=== PATIENT | male | born 1950 | race Caucasian/White ===

== ENCOUNTER 2017-03-22 12:43 | Inpatient (IN) | payer OTHER ==
[2017-03-22 15:25] VITALS: BMI 31.3
[2017-03-22] MEDS ORDERED: LOPERAMIDE HCL 2 MG CAPSULE PO PRN (18:47)
[2017-03-22] MEDS ORDERED: IBUPROFEN 400 MG TABLET (FP) PO PRN (18:47)
[2017-03-22] MEDS ORDERED: diphenhydrAMINE HCL 50 MG CAPSULE PO PRN (18:47)
[2017-03-22] MEDS ORDERED: ACETAMINOPHEN 325 MG TABLET (FP) PO PRN (18:47)
[2017-03-22] MEDS ORDERED: chlordiazePOXIDE HCL 25 MG CAPSULE PO PRN (18:47)
[2017-03-22] MEDS ORDERED: guaiFENesin/D-METHORPHAN HB 10 ML UNIT-DOSE CUPS PO PRN (18:47)
[2017-03-22] MEDS ORDERED: MAGNESIUM CITRATE 300 ML BOTTLE PO PRN (18:47)
[2017-03-22] MEDS ORDERED: MENTHOL/PHENOL 1 EACH UD MM PRN (18:47)
[2017-03-22] MEDS ORDERED: P-EPHED 60MG/TRIPROLIDI 2.5MG TABLET PO PRN (18:47)
[2017-03-22] MEDS ORDERED: MAGNESIUM HYDROX 2400MG/30ML ORAL SUSPENSION 30 ML CUP PO PRN (18:47)
[2017-03-22] MEDS ORDERED: MAG HYDROX/AL HYDROX/SIMETH 30 ML UNIT-DOSE CUP PO PRN (18:47)
--- NOTE | 2017-03-22 18:47 | HP ---
CIWA Score - CIWA Score Nausea/Vomitin-Mild Nausea/No Vomiting Muscle Tremors: 4-Moderate,w/Arms Extend Anxiety: 4-Mod. Anxious/Guarded Agitation: 4-Moderately Restless Paroxysmal Sweats: 1-Minimal Palms Moist Orientation: 0-Oriented Tacttile Disturbances: 0-None Auditory Disturbances: 0-None Visual Disturbances: 0-None Headache: 0-None Present CIWA-Ar Total Score: 14 Admission ROS BHS - HPI Chief Complaint: withdrawal sx Allergies/Adverse Reactions: Allergies Allergy/AdvReac Type Severity Reaction Status Date / Time No Known Allergies Allergy Verified 03/28/16 15:38 History of Present Illness: 66 years old male with long history of alcohol nicotine dependence has hypertension, positive ppd, and depression is admitted to detox Exam Limitations: No Limitations - Ebola screening Have you traveled outside of the country in the last 21 days: No Have you had contact with anyone from an Ebola affected area: No Have you been sick,other than usual withdrawal symptoms: No Do you have a fever: No - Review of Systems Constitutional: Changes in sleep, Weight Stable EENT: reports: Blurred Vision (eye glasses), Dental Problems (upper and lower) Respiratory: reports: No Symptoms reported Cardiac: reports: No Symptoms Reported GI: reports: Nausea, Poor Fluid Intake, Abdominal cramping : reports: No Symptoms Reported Musculoskeletal: reports: No Symptoms Reported Integumentary: reports: No Symptoms Reported Neuro: reports: Tremors Endocrine: reports: No Symptoms Reported Hematology: reports: No Symptoms Reported Psychiatric: reports: No Sypmtoms Reported, Judgement Intact, Orientated x3, Depressed Other Systems: Reviewed and Negative Patient History - Patient Medical History Hx Anemia: No Hx Asthma: No Hx Chronic Obstructive Pulmonary Disease (COPD): No Hx Cancer: No Hx Cardiac Disorders: No Hx Congestive Heart Failure: No Hx Hypertension: Yes (BP: 137/73) Hx Hypercholesterolemia: No Hx Pacemaker: No HX Cerebrovascular Accident: No Hx Seizures: No Hx Dementia: No Hx Diabetes: No Hx Gastrointestinal Disorders: No Hx Liver Disease: No Hx Genitourinary Disorders: No Hx Sexually Transmitted Disorders: No Hx Renal Disease (ESRD): No Hx Thyroid Disease: No Hx Human Immunodeficiency Virus (HIV): No (2014 LAST NEGATIVE) Hx Hepatitis C: No Hx Depression: Yes Hx Suicide Attempt: No Hx Bipolar Disorder: No Hx Schizophrenia: No - Patient Surgical History Past Surgical History: No Hx Neurologic Surgery: No Hx Cataract Extraction: No Hx Cardiac Surgery: No Hx Lung Surgery: No Hx Breast Surgery: No Hx Breast Biopsy: No Hx Abdominal Surgery: No Hx Appendectomy: No Hx Cholecystectomy: No Hx Genitourinary Surgery: No Hx Orthopedic Surgery: No - PPD History Previous Implant?: Yes Documented Results: Positive w/o proof Implanted On Prior [facility] Admission?: No Results: c-x-ray (neg.) PPD to be Administered?: No - Smoking Cessation Smoking history: Current every day smoker Have you smoked in the past 12 months: Yes Aproximately how many cigarettes per day: 10 Cigars Per Day: 0 Hx Chewing Tobacco Use: No Initiated information on smoking cessation: Yes 'Breaking Loose' booklet given: 03/22/17 - Substance & Tx. History Hx Alcohol Use: Yes Hx Substance Use: Yes Substance Use Type: Alcohol, Cocaine Hx Substance Use Treatment: Yes (03/2016 [facility] - Substances Abused Alcohol Route: Oral Frequency: Daily Amount used: Beer 1x 6 pack, Vodka 1 pint Age of first use: 17 Date of Last Use: 03/22/17 Cocaine Route: Smoking Frequency: Daily Amount used: $30 Age of first use: 18 Date of Last Use: 03/21/17 Family Disease History - Family Disease History Family Disease History: Diabetes: Mother ( CANCER OF BREAST), CA: Father (alcohol dependence;LUNG CA ), Mother, Other: Father Admission Physical Exam BHS - Vital Signs Vital Signs: Vital Signs - 24 hr 03/22/17 15:21 Temperature 97 F L Pulse Rate 102 H Respiratory 20 Rate Blood Pressure 137/73 - Physical General Appearance: Yes: Appropriately Dressed, Mild Distress, Obese, Tremorous , Irritable, Sweating, Anxious HEENTM: Yes: Hearing grossly Normal, Normal ENT Inspection, Normocephalic, Normal Voice Respiratory: Yes: Chest Non-Tender, Lungs Clear, Normal Breath Sounds, No Respiratory Distress, No Accessory Muscle Use Neck: Yes: Supple, Trachea in good position Breast: Yes: Breasts Symetrical Cardiology: Yes: Regular Rhythm, S1, S2, Tachycardia Abdominal: Yes: Normal Bowel Sounds, Non Tender, Soft Genitourinary: Yes: Within Normal Limits Back: Yes: Normal Inspection Musculoskeletal: Yes: full range of Motion, Gait Steady, Muscle Pain (legs cramping) Extremities: Yes: Normal Range of Motion, Non-Tender, Tremors Neurological: Yes: Fully Oriented, Alert, Motor Strength 5/5, Normal Response, Depressed Affect Integumentary: Yes: Warm Lymphatic: Yes: Within Normal Limits - Diagnostic (1) Alcohol dependence with uncomplicated withdrawal Current Visit: Yes Status: Acute (2) HTN (hypertension) Current Visit: Yes Status: Chronic Qualifiers: Hypertension type: essential hypertension Qualified Code(s): I10 - Essential (primary) hypertension; I10 - Essential (primary) hypertension; I10 - Essential (primary) hypertension Comment: PATIENT REPORTS TAKING HCTZ 12.5 MG DAILY, DENIES TAKING LISINOPRIL (3) MDD (major depressive disorder) Current Visit: Yes Status: Suspected Qualifiers: Major depression recurrence: recurrent Active/Remission status: in partial remission Qualified Code(s): F33.41 - Major depressive disorder, recurrent, in partial remission; F33.41 - Major depressive disorder, recurrent, in partial remission; F33.41 - Major depressive disorder, recurrent, in partial remission; F33.41 - Major depressive disorder, recurrent, in partial remission (4) Methadone maintenance therapy patient Current Visit: Yes Status: Chronic Comment: 40 MG VERIfication pending (5) Nicotine dependence Current Visit: Yes Status: Acute Qualifiers: Nicotine product type: cigarettes Substance use status: in withdrawal Qualified Code(s): F17.213 - Nicotine dependence, cigarettes, with withdrawal; F17.213 - Nicotine dependence, cigarettes, with withdrawal (6) Positive PPD, treated Current Visit: Yes Status: Resolved Cleared for Admission S - Detox or Rehab [facility] Level of Care: Medically Managed Detox Regimen/Protocol: Librium [facility] Breath Alcohol Content Breath Alcohol Content: 0 Urine Drug Screen - Results Drug Screen Negative: No Urine Drug Screen Results: KEVIN-Cocaine, OPI-Opiates, BZO-Benzodiazepines, MTD- Methadone, TCA-Tricyclic Antidepress
[2017-03-22] MEDS ORDERED: BACLOFEN 10 MG TABLET (FP) PO PRN (18:53)
[2017-03-22 20:41] LABS: URINE APPEARANCE SLCLOUDY; URINE BILIRUBIN NEGATIVE (NEGATIVE); URINE BLOOD NEGATIVE (NEGATIVE); URINE COLOR YELLOW; URINE GLUCOSE (UA) NEGATIVE (NEGATIVE); URINE KETONE NEGATIVE (NEGATIVE); URINE NITRITE NEGATIVE (NEGATIVE); URINE PROTEIN NEGATIVE (NEGATIVE); URINE UROBILINOGEN NEGATIVE mg/dL (0.2-1.0)
[2017-03-22 22:42] LABS: URINE LEUK ESTERASE Negative (NEGATIVE)
[2017-03-22] MEDS: chlordiazePOXIDE HCL 25 MG CAPSULE PO SCH (22:55)
[2017-03-22] MEDS: THIAMINE HCL 100 MG TABLET (FP) PO SCH (22:55)
[2017-03-23] MEDS: chlordiazePOXIDE HCL 25 MG CAPSULE PO SCH ×4 (05:52→22:09)
--- NOTE | 2017-03-23 08:32 | CONSULT ---
[facility] Psychiatric Consult - Data Date of interview: 03/23/17 Admission source: [facility] Identifying data: This is 66 years old female with history of psychiatric hospitalization, history of MDD, intoxicated with: Alcohol, Opioids, Cocaine and Nicotine Substance Abuse History: Smoking history: Current every day smoker. Have you smoked in the past 12 months: Yes. Aproximately how many cigarettes per day: 10. Cigars Per Day: 0. Hx Chewing Tobacco Use: No. Initiated information on smoking cessation: Yes. 'Breaking Loose' booklet given: 03/22/17. - Substance & Tx. History. Hx Alcohol Use: Yes. Hx Substance Use: Yes. Substance Use Type : Alcohol, Cocaine. Hx Substance Use Treatment: Yes (03/2016 [facility]). - Substances Abused. Alcohol. Route: Oral. Frequency: Daily. Amount used: Beer 1x 6 pack, Vodka 1 pint. Age of first use: 17. Date of Last Use: . Cocaine. Route: Smoking. Frequency: Daily. Amount used: $30. Age of first use: 18. Date of Last Use: 03/21/17 Medical History: HTN. PPD+ history, MMTP history, DM-II Psychiatric History: Patienmt reports to carry MDD, , reports taking prior to admission: Prozac 20mg poqd. Elavil 100mg po qhs. There is unclear psychiatric admission on about 10 years ago for safety, denies suicidal history Physical/Sexual Abuse/Trauma History: Denies Additional Comment: Prozac 20mg poqd. Elavil 100mg po qhs Mental Status Exam - Mental Status Exam Alert and Oriented to: Person Cognitive Function: Fair Patient Appearance: Unkempt Mood: Apprehensive Affect: Mood Congruent Patient Behavior: Cooperative Speech Pattern: Appropriate Voice Loudness: Normal Thought Process: Goal Oriented Thought Disorder: Being Controlled Hallucinations: Denies Suicidal Ideation: Denies Homicidal Ideation: Denies Insight/Judgement: Fair Sleep: Difficulty falling asleep Appetite: Fair Muscle strength/Tone: Normal Gait/Station: Shuffling Additional Comments: Prozac 20mg poqd. Elavil 100mg po qhs Psychiatric Findings - Problem List ([place] 1, 2,3) (1) Alcohol dependence with uncomplicated withdrawal Current Visit: Yes Status: Acute (2) Nicotine dependence Current Visit: Yes Status: Acute Qualifiers: Nicotine product type: cigarettes Substance use status: in withdrawal Qualified Code(s): F17.213 - Nicotine dependence, cigarettes, with withdrawal; F17.213 - Nicotine dependence, cigarettes, with withdrawal (3) Methadone maintenance therapy patient Current Visit: Yes Status: Chronic Comment: 40 MG VERIfication pending (4) MDD (major depressive disorder) Current Visit: Yes Status: Suspected Qualifiers: Major depression recurrence: recurrent Active/Remission status: in partial remission Qualified Code(s): F33.41 - Major depressive disorder, recurrent, in partial remission; F33.41 - Major depressive disorder, recurrent, in partial remission; F33.41 - Major depressive disorder, recurrent, in partial remission; F33.41 - Major depressive disorder, recurrent, in partial remission (5) Drug-induced mood disorder Current Visit: No Status: Acute (6) Opioid dependence on agonist therapy Current Visit: No Status: Acute (7) Substance induced mood disorder Current Visit: No Status: Acute (8) Substance-induced sleep disorder Current Visit: No Status: Acute (9) Cocaine dependence Current Visit: No Status: Chronic Qualifiers: Substance use status: uncomplicated Qualified Code(s): F14.20 - Cocaine dependence, uncomplicated; F14.20 - Cocaine dependence, uncomplicated; F14.20 - Cocaine dependence, uncomplicated - Initial Treatment Plan Initial Treatment Plan: Prozac 20mg poqd. Elavil 100mg po qhs
[2017-03-23] MEDS: HYDROCHLOROTHIAZIDE 12.5 MG CAPSULE (FP) PO SCH (10:11)
[2017-03-23] MEDS: METHADONE HCL 40 MG DISPERSABLE TABLET PO SCH (10:11)
[2017-03-23] MEDS: PRENATAL VITAMINS W/ FOLIC ACID TABLET (FP) PO SCH (10:11)
[2017-03-23] MEDS: FLUoxetine HCL 20 MG CAPSULE (FP) PO SCH (10:13)
[2017-03-23 10:46] LABS: MCH 27.9 pg (25.7-33.7); MCHC 32.9 g/dl (32.0-35.9); MEAN CELL VOLUME 84.6 fl (80-96); MEAN PLT VOLUME 8.9 fl (7.5-11.1); PLATELET COUNT 259 K/MM3 (134-434); RDW 14.7 % (11.9-15.9); WHITE BLOOD COUNT 7.4 K/mm3 (4.0-10.0)
[2017-03-23 10:51] LABS: ALBUMIN 3.2 g/dl (3.4-5.0); ANION GAP 6 (8-16); BILIRUBIN,TOTAL 0.2 mg/dL (0.2-1.0); CALCIUM 8.7 mg/dL (8.5-10.1); CO2 33 mmol/L (21-32); CREATININE 0.8 mg/dL (0.7-1.3); GLUCOSE,RANDOM 96 mg/dL (74-106); SGOT/AST 18 U/L (15-37); SGPT/ALT 29 U/L (12-78); TOT PROT 6.4 g/dl (6.4-8.2)
[2017-03-23 10:52] LABS: ALK PHOS 82 U/L (45-117)
--- NOTE | 2017-03-23 11:01 | PN ---
S CIWA - CIWA Score Nausea/Vomitin Muscle Tremors: 5 Anxiety: 5 Agitation: 5 Paroxysmal Sweats: 3 Orientation: 0-Oriented Tacttile Disturbances: 1-Very Mild Itch/Numbness Auditory Disturbances: 0-None Visual Disturbances: 0-None Headache: 1-Very Mild CIWA-Ar Total Score: 23 S Progress Note (SOAP) Subjective: Sweating, tremor, chills, nausea, interrupted sleep Objective: 03/23/17 10:59 Last Vital Signs Temp Pulse Resp BP Pulse Ox 96.4 F L 83 18 118/64 03/23/17 09:29 03/23/17 09:29 03/23/17 09:29 03/23/17 09:29 Laboratory Tests 03/22/17 03/23/17 03/23/17 20:00 07:20 07:20 WBC 7.4 RBC 4.20 Hgb 11.7 Hct 35.6 MCV 84.6 MCH 27.9 MCHC 32.9 RDW 14.7 Plt Count 259 MPV 8.9 D Sodium 140 Potassium 3.5 Chloride 101 Carbon Dioxide 33 H Anion Gap 6 L BUN 13 Creatinine 0.8 Creat Clearance w eGFR > 60 Random Glucose 96 Calcium 8.7 Total Bilirubin 0.2 D AST 18 D ALT 29 D Alkaline Phosphatase 82 Total Protein 6.4 Albumin 3.2 L D Urine Color Yellow Urine Appearance Slcloudy Urine pH 5.0 Ur Specific [place] 1.025 Urine Protein Negative Urine Glucose (UA) Negative Urine Ketones Negative Urine Blood Negative Urine Nitrite Negative Urine Bilirubin Negative Urine Urobilinogen Negative Ur Leukocyte Esterase Negative Labs noted Assessment: 03/23/17 11:00 Withdrawal symptoms Plan: Continue detox Patient is on methadone 40mg PO daily, MMTP (verified by nurse), first dose today
--- NOTE | 2017-03-23 13:08 | EKG ---
Test Reason : Blood Pressure : / mmHG Vent. Rate : 091 BPM Atrial Rate : 091 BPM P-R Int : 156 ms QRS Dur : 096 ms QT Int : 400 ms P-R-T Axes : 061 -25 030 degrees QTc Int : 492 ms NORMAL SINUS RHYTHM POSSIBLE LEFT ATRIAL ENLARGEMENT LEFT VENTRICULAR HYPERTROPHY CANNOT RULE OUT SEPTAL INFARCT , AGE UNDETERMINED ABNORMAL ECG NO PREVIOUS ECGS AVAILABLE Confirmed by DI BROOKE MD ([id number]) on 03/23/2017 1:07:57 PM Referred By: Confirmed By:DI BROOKE MD
[2017-03-23] MEDS: THIAMINE HCL 100 MG TABLET (FP) PO SCH (22:09)
[2017-03-23] MEDS: AMITRIPTYLINE HCL 100 MG TABLET PO SCH (22:09)
[2017-03-24] MEDS: METHADONE HCL 40 MG DISPERSABLE TABLET PO SCH (05:56)
[2017-03-24] MEDS: chlordiazePOXIDE HCL 25 MG CAPSULE PO SCH ×3 (05:57→17:22)
[2017-03-24] MEDS: FLUoxetine HCL 20 MG CAPSULE (FP) PO SCH (10:48)
[2017-03-24] MEDS: PRENATAL VITAMINS W/ FOLIC ACID TABLET (FP) PO SCH (10:48)
[2017-03-24] MEDS: HYDROCHLOROTHIAZIDE 12.5 MG CAPSULE (FP) PO SCH (10:48)
--- NOTE | 2017-03-24 11:58 | PN ---
S CIWA - CIWA Score Nausea/Vomitin-No Nausea/No Vomiting Muscle Tremors: 4-Moderate,w/Arms Extend Anxiety: 3 Agitation: 3 Paroxysmal Sweats: 3 Orientation: 0-Oriented Tacttile Disturbances: 0-None Auditory Disturbances: 0-None Visual Disturbances: 0-None Headache: 0-None Present CIWA-Ar Total Score: 13 BHS Progress Note (SOAP) Subjective: Sweating,anxiety,tremors,restless,interrupted sleep. Objective: 03/24/17 11:55 Vital Signs - 8 hr 03/24/17 03/24/17 06:24 11:06 Temperature 96.4 F L Pulse Rate 72 75 Respiratory 18 18 Rate Blood Pressure 139/79 106/58 Laboratory Tests 03/22/17 03/23/17 03/23/17 20:00 07:20 07:20 WBC 7.4 RBC 4.20 Hgb 11.7 Hct 35.6 MCV 84.6 MCH 27.9 MCHC 32.9 RDW 14.7 Plt Count 259 MPV 8.9 D Sodium 140 Potassium 3.5 Chloride 101 Carbon Dioxide 33 H Anion Gap 6 L BUN 13 Creatinine 0.8 Creat Clearance w eGFR > 60 Random Glucose 96 Calcium 8.7 Total Bilirubin 0.2 D AST 18 D ALT 29 D Alkaline Phosphatase 82 Total Protein 6.4 Albumin 3.2 L D Urine Color Yellow Urine Appearance Slcloudy Urine pH 5.0 Ur Specific [place] 1.025 Urine Protein Negative Urine Glucose (UA) Negative Urine Ketones Negative Urine Blood Negative Urine Nitrite Negative Urine Bilirubin Negative Urine Urobilinogen Negative Ur Leukocyte Esterase Negative RPR Titer 03/23/17 07:20 WBC RBC Hgb Hct MCV MCH MCHC RDW Plt Count MPV Sodium Potassium Chloride Carbon Dioxide Anion Gap BUN Creatinine Creat Clearance w eGFR Random Glucose Calcium Total Bilirubin AST ALT Alkaline Phosphatase Total Protein Albumin Urine Color Urine Appearance Urine pH Ur Specific [place] Urine Protein Urine Glucose (UA) Urine Ketones Urine Blood Urine Nitrite Urine Bilirubin Urine Urobilinogen Ur Leukocyte Esterase RPR Titer Nonreactive labs noted Assessment: 03/24/17 11:56 Withdrawal sx. Plan: Continue detox
[2017-03-24 22:08] VITALS: TEMP 97.1
[2017-03-24] MEDS: chlordiazePOXIDE 5 MG CAPSULE PO SCH (22:18)
[2017-03-24] MEDS: AMITRIPTYLINE HCL 100 MG TABLET PO SCH (22:18)
[2017-03-24] MEDS: THIAMINE HCL 100 MG TABLET (FP) PO SCH (22:18)
[2017-03-25] MEDS: chlordiazePOXIDE 5 MG CAPSULE PO SCH ×2 (06:47→10:35)
[2017-03-25] MEDS: METHADONE HCL 40 MG DISPERSABLE TABLET PO SCH (07:40)
[2017-03-25 09:20] VITALS: BP 134/86; PULSE 92
--- NOTE | 2017-03-25 09:54 | DS ---
[facility] Detox Discharge Summary Admission Date: 03/22/17 Discharge Date: 03/25/17 - History Present History: Alcohol Dependence, MMTP Pertinent Past History: HTN - Physical Exam Results Vital Signs: Vital Signs Temperature 97.1 F L 03/25/17 09:18 Pulse Rate 92 H 03/25/17 09:18 Respiratory Rate 18 03/25/17 09:18 Blood Pressure 134/86 03/25/17 09:18 O2 Sat by Pulse Oximetry (%) Pertinent Admission Physical Exam Findings: Withdrawal sx. Laboratory Last Values WBC 7.4 K/mm3 (4.0-10.0) 03/23/17 07:20 RBC 4.20 M/mm3 (4.00-5.60) 03/23/17 07:20 Hgb 11.7 GM/dL (11.7-16.9) 03/23/17 07:20 Hct 35.6 % (35.4-49) 03/23/17 07:20 MCV 84.6 fl (80-96) 03/23/17 07:20 MCH 27.9 pg (25.7-33.7) 03/23/17 07:20 MCHC 32.9 g/dl (32.0-35.9) 03/23/17 07:20 RDW 14.7 % (11.9-15.9) 03/23/17 07:20 Plt Count 259 K/MM3 (134-434) 03/23/17 07:20 MPV 8.9 fl (7.5-11.1) D 03/23/17 07:20 Sodium 140 mmol/L (136-145) 03/23/17 07:20 Potassium 3.5 mmol/L (3.5-5.1) 03/23/17 07:20 Chloride 101 mmol/L (98-107) 03/23/17 07:20 Carbon Dioxide 33 mmol/L (21-32) H 03/23/17 07:20 Anion Gap 6 (8-16) L 03/23/17 07:20 BUN 13 mg/dL (7-18) 03/23/17 07:20 Creatinine 0.8 mg/dL (0.7-1.3) 03/23/17 07:20 Creat Clearance w eGFR > 60 (>60) 03/23/17 07:20 Random Glucose 96 mg/dL (74-106) 03/23/17 07:20 Calcium 8.7 mg/dL (8.5-10.1) 03/23/17 07:20 Total Bilirubin 0.2 mg/dL (0.2-1.0) D 03/23/17 07:20 AST 18 U/L (15-37) D 03/23/17 07:20 ALT 29 U/L (12-78) D 03/23/17 07:20 Alkaline Phosphatase 82 U/L (45-117) 03/23/17 07:20 Total Protein 6.4 g/dl (6.4-8.2) 03/23/17 07:20 Albumin 3.2 g/dl (3.4-5.0) L D 03/23/17 07:20 Urine Color Yellow 03/22/17 20:00 Urine Appearance Slcloudy 03/22/17 20:00 Urine pH 5.0 (5.0-8.0) 03/22/17 20:00 Ur Specific [place] 1.025 (1.005-1.025) 03/22/17 20:00 Urine Protein Negative (NEGATIVE) 03/22/17 20:00 Urine Glucose (UA) Negative (NEGATIVE) 03/22/17 20:00 Urine Ketones Negative (NEGATIVE) 03/22/17 20:00 Urine Blood Negative (NEGATIVE) 03/22/17 20:00 Urine Nitrite Negative (NEGATIVE) 03/22/17 20:00 Urine Bilirubin Negative (NEGATIVE) 03/22/17 20:00 Urine Urobilinogen Negative mg/dL (0.2-1.0) 03/22/17 20:00 Ur Leukocyte Esterase Negative (NEGATIVE) 03/22/17 20:00 RPR Titer Nonreactive (NONREACTIVE) 03/23/17 07:20 labs noted - Treatment Patient has Accepted a Rehab Referral to: [facility] at [facility] - Medication Discharge Medications: Ambulatory Orders Hydrochlorothiazide [Hctz -] 12.5 mg PO DAILY #30 cap 07/22/15 Amitriptyline HCl [Elavil -] 100 mg PO HS #30 tablet 08/28/15 Fluoxetine HCl [Prozac -] 20 mg PO DAILY #30 capsule 08/28/15 Amitriptyline HCl [Elavil -] 100 mg PO HS #30 tablet 03/23/17 Fluoxetine HCl [Prozac -] 20 mg PO DAILY #30 cap 03/23/17 - Diagnosis (1) Alcohol dependence with uncomplicated withdrawal Current Visit: Yes Status: Acute (2) Nicotine dependence Current Visit: Yes Status: Acute Qualifiers: Nicotine product type: cigarettes Substance use status: in withdrawal Qualified Code(s): F17.213 - Nicotine dependence, cigarettes, with withdrawal; F17.213 - Nicotine dependence, cigarettes, with withdrawal (3) HTN (hypertension) Current Visit: Yes Status: Chronic Qualifiers: Hypertension type: essential hypertension Qualified Code(s): I10 - Essential (primary) hypertension; I10 - Essential (primary) hypertension; I10 - Essential (primary) hypertension (4) Positive PPD, treated Current Visit: Yes Status: Resolved (5) Drug-induced mood disorder Current Visit: No Status: Acute (6) Opioid dependence on agonist therapy Current Visit: No Status: Acute (7) Substance induced mood disorder Current Visit: Yes Status: Acute (8) Substance-induced sleep disorder Current Visit: Yes Status: Acute (9) Cocaine dependence Current Visit: No Status: Chronic Qualifiers: Substance use status: uncomplicated Qualified Code(s): F14.20 - Cocaine dependence, uncomplicated; F14.20 - Cocaine dependence, uncomplicated; F14.20 - Cocaine dependence, uncomplicated - AMA Did Patient Leave Against Medical Advice: Yes
[2017-03-25] MEDS: HYDROCHLOROTHIAZIDE 12.5 MG CAPSULE (FP) PO SCH (10:35)
[2017-03-25] MEDS: PRENATAL VITAMINS W/ FOLIC ACID TABLET (FP) PO SCH (10:35)
[2017-03-25] MEDS: FLUoxetine HCL 20 MG CAPSULE (FP) PO SCH (10:35)
[2017-03-25] MEDS ORDERED: chlordiazePOXIDE HCL 10 MG CAPSULE PO SCH (23:00)
== END 2017-03-25 09:35 | disposition left against medical advice (07) | DRG 894 ==
LOC: YASAS 12:43 → Y3N 18:33
PROVIDERS: ADMIT Internal Medicine; ATTEND Internal Medicine
PROC: HZ2ZZZZ Detoxification Services for Substance Abuse Treatment (ICD-10-PCS; principal; 2017-03-22)
DX: F11.23 Opioid dependence with withdrawal (principal); F14.20 Cocaine dependence, uncomplicated; F19.282 Other psychoactive substance dependence with psychoactive substance-induced sleep disorder; F10.230 Alcohol dependence with withdrawal, uncomplicated; F17.210 Nicotine dependence, cigarettes, uncomplicated; F33.41 Major depressive disorder, recurrent, in partial remission; F19.24 Other psychoactive substance dependence with psychoactive substance-induced mood disorder; I10 Essential (primary) hypertension; R76.11 Nonspecific reaction to tuberculin skin test without active tuberculosis
CPT/HCPCS: 36415; 71020-TC; 80053; 81003; 85027; 86593; 93005; 93010

== ENCOUNTER 2017-07-03 10:31 | Inpatient (IN) | payer OTHER ==
[2017-07-03 11:02] VITALS: BMI 30.4
--- NOTE | 2017-07-03 15:27 | HP ---
CIWA Score - CIWA Score Nausea/Vomitin-Mild Nausea/No Vomiting Muscle Tremors: 4-Moderate,w/Arms Extend Anxiety: 4-Mod. Anxious/Guarded Agitation: 4-Moderately Restless Paroxysmal Sweats: 1-Minimal Palms Moist Orientation: 0-Oriented Tacttile Disturbances: 1-Very Mild Itch/Numbness Auditory Disturbances: 0-None Visual Disturbances: 0-None Headache: 2-Mild CIWA-Ar Total Score: 17 Admission ROS BHS - HPI Chief Complaint: withdrawal sx Allergies/Adverse Reactions: Allergies Allergy/AdvReac Type Severity Reaction Status Date / Time No Known Allergies Allergy Verified 07/03/17 11:17 History of Present Illness: 66 years old male with long history of alcohol nicotine dependence has diabetes ii hypertension positive ppd bipolar ii methadone maintenance program 40 mg cane for ambulation arthritis left knee is admitted to detox Exam Limitations: No Limitations - Ebola screening Have you traveled outside of the country in the last 21 days: No Have you had contact with anyone from an Ebola affected area: No Have you been sick,other than usual withdrawal symptoms: No Do you have a fever: No - Review of Systems Constitutional: Changes in sleep, Weight Stable EENT: reports: Blurred Vision (eye glasses) Respiratory: reports: No Symptoms reported Cardiac: reports: No Symptoms Reported GI: reports: Diarrhea, Nausea, Poor Fluid Intake, Abdominal cramping : reports: No Symptoms Reported Musculoskeletal: reports: Back Pain, Joint Pain, Muscle Pain, Neck Pain Integumentary: reports: No Symptoms Reported Neuro: reports: Tremors Endocrine: reports: No Symptoms Reported Hematology: reports: No Symptoms Reported Psychiatric: reports: Judgement Intact, Anxious, Depressed Other Systems: Reviewed and Negative Patient History - Patient Medical History Hx Anemia: No Hx Asthma: No Hx Chronic Obstructive Pulmonary Disease (COPD): No Hx Cancer: No Hx Cardiac Disorders: No Hx Congestive Heart Failure: No Hx Hypertension: Yes (non complaint with meds.) Hx Hypercholesterolemia: No Hx Pacemaker: No HX Cerebrovascular Accident: No Hx Seizures: No Hx Dementia: No Hx Diabetes: Yes (non compliant) Hx Gastrointestinal Disorders: No Hx Liver Disease: No Hx Genitourinary Disorders: No Hx Sexually Transmitted Disorders: No Hx Renal Disease (ESRD): No Hx Thyroid Disease: No Hx Human Immunodeficiency Virus (HIV): No (2014 LAST NEGATIVE) Hx Hepatitis C: No Hx Depression: No Hx Suicide Attempt: No Hx Bipolar Disorder: Yes Hx Schizophrenia: No - Patient Surgical History Past Surgical History: No Hx Neurologic Surgery: No Hx Cataract Extraction: No Hx Cardiac Surgery: No Hx Lung Surgery: No Hx Breast Surgery: No Hx Breast Biopsy: No Hx Abdominal Surgery: No Hx Appendectomy: No Hx Cholecystectomy: No Hx Genitourinary Surgery: No Hx Orthopedic Surgery: No - PPD History Previous Implant?: Yes Documented Results: Positive w/proof Implanted On Prior [facility] Admission?: No Results: c-x-ray (neg.) PPD to be Administered?: No - Smoking Cessation Smoking history: Current every day smoker Have you smoked in the past 12 months: Yes Aproximately how many cigarettes per day: 10 Cigars Per Day: 0 Hx Chewing Tobacco Use: No Initiated information on smoking cessation: Yes 'Breaking Loose' booklet given: 07/03/17 - Substance & Tx. History Hx Alcohol Use: Yes Substance Use Type: Alcohol, Cocaine, Opiates Hx Substance Use Treatment: Yes (03/2017 [facility] - Substances Abused Alcohol Route: Oral Frequency: Daily Amount used: 7-10 BEERS 40oz rum 1pint Age of first use: 22 Date of Last Use: 07/03/17 Cocaine Route: Inhalation Frequency: Daily Amount used: $20 Age of first use: 32 Date of Last Use: 07/03/17 Family Disease History - Family Disease History Family Disease History: Diabetes: Mother ( CANCER OF BREAST), CA: Father (alcohol dependence;LUNG CA ), Mother, Other: Father Admission Physical Exam BHS - Vital Signs Vital Signs: Vital Signs - 24 hr 07/03/17 10:53 Temperature 95.5 F L Pulse Rate 80 Respiratory 20 Rate Blood Pressure 146/90 - Physical General Appearance: Yes: Appropriately Dressed, Mild Distress, Tremorous, Irritable, Sweating, Anxious HEENTM: Yes: Hearing grossly Normal, Normal ENT Inspection (eye glasses), Normocephalic, Normal Voice Respiratory: Yes: Chest Non-Tender, Lungs Clear, Normal Breath Sounds, No Respiratory Distress, No Accessory Muscle Use Neck: Yes: Supple, Trachea in good position Breast: Yes: Breasts Symetrical Cardiology: Yes: Regular Rhythm, Regular Rate, S1, S2 Abdominal: Yes: Non Tender, Soft, Increased Bowel Sounds Genitourinary: Yes: Within Normal Limits Back: Yes: Normal Inspection Musculoskeletal: Yes: Gait Steady (cane), Back pain, Muscle Pain Extremities: Yes: Non-Tender, Tremors Neurological: Yes: Alert, Normal Response, Depressed Affect Integumentary: Yes: Warm Lymphatic: Yes: Within Normal Limits - Diagnostic (1) Methadone maintenance therapy patient Current Visit: Yes Status: Chronic Comment: verification pending (2) Alcohol dependence with uncomplicated withdrawal Current Visit: Yes Status: Acute (3) Nicotine dependence Current Visit: Yes Status: Acute Qualifiers: Nicotine product type: cigarettes Substance use status: in withdrawal Qualified Code(s): F17.213 - Nicotine dependence, cigarettes, with withdrawal Cleared for Admission [facility] - Detox or Rehab [facility] Level of Care: Medically Managed Detox Regimen/Protocol: Librium [facility] Breath Alcohol Content Breath Alcohol Content: 0 Urine Drug Screen - Results Drug Screen Negative: No Urine Drug Screen Results: KEVIN-Cocaine, OPI-Opiates, MTD-Methadone, TCA- Tricyclic Antidepress, OXY-Oxycodone
[2017-07-03] MEDS ORDERED: chlordiazePOXIDE HCL 25 MG CAPSULE PO PRN (15:32)
[2017-07-03] MEDS ORDERED: guaiFENesin/D-METHORPHAN HB 10 ML UNIT-DOSE CUPS PO PRN (15:32)
[2017-07-03] MEDS ORDERED: NICOTINE POLACRILEX 2 MG GUM BUC PRN (15:32)
[2017-07-03] MEDS ORDERED: MAG HYDROX/AL HYDROX/SIMETH 30 ML UNIT-DOSE CUP PO PRN (15:32)
[2017-07-03] MEDS ORDERED: IBUPROFEN 400 MG TABLET (FP) PO PRN (15:32)
[2017-07-03] MEDS ORDERED: LOPERAMIDE HCL 2 MG CAPSULE PO PRN (15:32)
[2017-07-03] MEDS ORDERED: P-EPHED 60MG/TRIPROLIDI 2.5MG TABLET PO PRN (15:32)
[2017-07-03] MEDS ORDERED: MAGNESIUM CITRATE 300 ML BOTTLE PO PRN (15:32)
[2017-07-03] MEDS ORDERED: MENTHOL/PHENOL 1 EACH UD MM PRN (15:32)
[2017-07-03] MEDS ORDERED: MAGNESIUM HYDROX 2400MG/30ML ORAL SUSPENSION 30 ML CUP PO PRN (15:32)
[2017-07-03] MEDS ORDERED: ACETAMINOPHEN 325 MG TABLET (FP) PO PRN (15:32)
[2017-07-03] MEDS: THIAMINE HCL 100 MG TABLET (FP) PO SCH (22:17)
[2017-07-03] MEDS: chlordiazePOXIDE HCL 25 MG CAPSULE PO SCH (22:19)
[2017-07-03 23:26] LABS: URINE APPEARANCE SLCLOUDY; URINE BILIRUBIN NEGATIVE (NEGATIVE); URINE BLOOD NEGATIVE (NEGATIVE); URINE COLOR YELLOW; URINE GLUCOSE (UA) NEGATIVE (NEGATIVE); URINE KETONE NEGATIVE (NEGATIVE); URINE LEUK ESTERASE NEGATIVE (NEGATIVE); URINE NITRITE NEGATIVE (NEGATIVE); URINE PROTEIN NEGATIVE (NEGATIVE); URINE UROBILINOGEN NEGATIVE mg/dL (0.2-1.0)
[2017-07-04] MEDS: chlordiazePOXIDE HCL 25 MG CAPSULE PO SCH ×4 (05:45→22:30)
--- NOTE | 2017-07-04 09:14 | PN ---
S CIWA - CIWA Score Nausea/Vomitin Muscle Tremors: 3 Anxiety: 3 Agitation: 3 Paroxysmal Sweats: 3 Orientation: 0-Oriented Tacttile Disturbances: 0-None Auditory Disturbances: 0-None Visual Disturbances: 0-None Headache: 0-None Present CIWA-Ar Total Score: 15 BHS Progress Note (SOAP) Subjective: nausea, sweats, interrupted sleep, anxiety, tremors Objective: 07/04/17 09:13 Vital Signs - 24 hr 07/03/17 07/03/17 07/03/17 10:53 17:49 21:49 Temperature 95.5 F L 99.3 F 97.5 F L Pulse Rate 80 71 70 Respiratory 20 18 18 Rate Blood Pressure 146/90 127/60 137/74 07/04/17 07/04/17 07/04/17 00:30 03:30 06:22 Temperature 97.5 F L Pulse Rate 63 Respiratory 18 18 16 Rate Blood Pressure 140/94 Laboratory Tests 07/03/17 Unknown Urine Color Yellow Urine Appearance Slcloudy Urine pH 5.0 Ur Specific [place] 1.027 Urine Protein Negative Urine Glucose (UA) Negative Urine Ketones Negative Urine Blood Negative Urine Nitrite Negative Urine Bilirubin Negative Urine Urobilinogen Negative Ur Leukocyte Esterase Negative labs pending Assessment: 07/04/17 09:14 withdrawal sx, cont detox, fluids, encourage ambulation
[2017-07-04 10:13] LABS: ALBUMIN 3.3 g/dl (3.4-5.0); ANION GAP 8 (8-16); BLOOD UREA NITROGEN 17 mg/dL (7-18); CHLORIDE 105 mmol/L (98-107); CO2 30 mmol/L (21-32); CREATININE 0.9 mg/dL (0.7-1.3); GLUCOSE,RANDOM 146 mg/dL (74-106); POTASSIUM 3.5 mmol/L (3.5-5.1); SGOT/AST 21 U/L (15-37); SGPT/ALT 37 U/L (12-78); SODIUM 143 mmol/L (136-145)
[2017-07-04 10:14] LABS: ALK PHOS 88 U/L (45-117); BILIRUBIN,TOTAL 0.3 mg/dL (0.2-1.0); TOT PROT 7.5 g/dl (6.4-8.2)
--- NOTE | 2017-07-04 10:14 | CONSULT ---
[facility] Psychiatric Consult - Data Date of interview: 07/04/17 Admission source: [facility] Identifying data: Pt is a 66 year old male, single, father of one and currently unemployed.This is one of multiple admissions for patient. Pt. admitted to for alcohol and cocaine dependence. Substance Abuse History: Following information confirmed with Mr. Norton: Smoking Cessation. Smoking history: Current every day smoker. Have you smoked in the past 12 months: Yes. Aproximately how many cigarettes per day: 10. Cigars Per Day: 0. Hx Chewing Tobacco Use: No. Initiated information on smoking cessation: Yes. 'Breaking Loose' booklet given: 07/03/17. - Substance & Tx. History. Hx Alcohol Use: Yes. Substance Use Type: Alcohol, Cocaine, Opiates. Hx Substance Use Treatment: Yes (03/2017 [facility]). - Substances Abused. Alcohol. Route: Oral. Frequency: Daily. Amount used: 7-10 BEERS 40oz rum 1pint. Age of first use: 22. Date of Last Use: 07/03/17. Cocaine. Route: Inhalation. Frequency: Daily. Amount used: $20. Age of first use: 32. Date of Last Use: 07/03/17 Medical History: Hypertension Psychiatric History: Pt. denies h/o psychiatric hospitalization. Reports OPC in the [place] on [address]. States he has been receiving OPC from this clinic for approximately ten years. States he is prescribed elavil 100mg (last took 2 days ago) and zyprexa (not compliant with zyprexa). Diagnosis of MDD. Pt. denies h/o suicide attempt. Pt. denies sucidial and homicidal ideation. Physical/Sexual Abuse/Trauma History: Denies. Additional Comment: Urine Drug Screen Results: KEVIN-Cocaine, OPI-Opiates, MTD- Methadone, TCA-Tricyclic Antidepress, OXY-Oxycodone Mental Status Exam - Mental Status Exam Alert and Oriented to: Time, Place, Person Cognitive Function: Good Patient Appearance: Well Groomed Mood: Hopeful Affect: Appropriate Patient Behavior: Appropriate, Cooperative Speech Pattern: Clear, Appropriate Voice Loudness: Normal Thought Process: Goal Oriented Thought Disorder: Not Present Hallucinations: Denies Suicidal Ideation: Denies Homicidal Ideation: Denies Insight/Judgement: Poor Sleep: Poorly Appetite: Fair Muscle strength/Tone: Normal Gait/Station: Normal Psychiatric Findings - Problem List ([place] 1, 2,3) (1) Alcohol dependence with uncomplicated withdrawal Current Visit: Yes Status: Acute (2) Nicotine dependence Current Visit: Yes Status: Acute Qualifiers: Nicotine product type: cigarettes Substance use status: in withdrawal Qualified Code(s): F17.213 - Nicotine dependence, cigarettes, with withdrawal (3) Substance-induced sleep disorder Current Visit: Yes Status: Acute (4) MDD (major depressive disorder) Current Visit: Yes Status: Chronic Qualifiers: Major depression recurrence: recurrent Active/Remission status: in partial remission Qualified Code(s): F33.41 - Major depressive disorder, recurrent, in partial remission Comment: Self reports. (5) Cocaine dependence Current Visit: Yes Status: Acute Qualifiers: Substance use status: uncomplicated Qualified Code(s): F14.20 - Cocaine dependence, uncomplicated (6) Methadone maintenance therapy patient Current Visit: Yes Status: Chronic Comment: verification pending - Initial Treatment Plan Initial Treatment Plan: Psychoeducation provided. Detoxification in progress. Elavil 50mg qhs ordered. Benefits and side effects discussed. Verbal consent given. Will continue to monitor patient.
[2017-07-04 10:21] LABS: HEMATOCRIT 31.3 % (35.4-49); HEMOGLOBIN 9.9 GM/dL (11.7-16.9); MCH 26.5 pg (25.7-33.7); MCHC 31.5 g/dl (32.0-35.9); MEAN CELL VOLUME 84.3 fl (80-96); MEAN PLT VOLUME 9.3 fl (7.5-11.1); PLATELET COUNT 424 K/MM3 (134-434); RBC 3.72 M/mm3 (4.00-5.60); RDW 14.9 % (11.9-15.9); WHITE BLOOD COUNT 12.2 K/mm3 (4.0-10.0)
[2017-07-04] MEDS: NICOTINE 14 MG/24 HOURS TOPICAL PATCH TD SCH (10:21)
[2017-07-04] MEDS: PRENATAL VITAMINS W/ FOLIC ACID TABLET (FP) PO SCH (10:21)
[2017-07-04] MEDS: METHADONE HCL 40 MG DISPERSABLE TABLET PO SCH (10:21)
[2017-07-04] MEDS ORDERED: PNEUMOC 13-VAL CONJ-DIP CRM/PF 0.5 ML DISP.SYRIN IM ONE (10:34)
[2017-07-04] MEDS ORDERED: PNEUMOCOCCAL 23 VACCINE 0.5 ML VIAL IM ONE ×3 (11:00→13:00)
--- NOTE | 2017-07-04 14:10 | EKG ---
Test Reason : Blood Pressure : / mmHG Vent. Rate : 068 BPM Atrial Rate : 068 BPM P-R Int : 144 ms QRS Dur : 110 ms QT Int : 432 ms P-R-T Axes : 054 -01 051 degrees QTc Int : 459 ms NORMAL SINUS RHYTHM NORMAL ECG WHEN COMPARED WITH ECG OF 22-MAR-2017 20:38, MINIMAL CRITERIA FOR SEPTAL INFARCT ARE NO LONGER PRESENT Confirmed by MD OLGA, ROSEMARIE ([id number]) on 07/04/2017 2:09:47 PM Referred By: Confirmed By:ROSEMARIE ESPINOZA MD
[2017-07-04] MEDS: AMITRIPTYLINE HCL 25 MG TABLET (FP) PO SCH (22:30)
[2017-07-04] MEDS: THIAMINE HCL 100 MG TABLET (FP) PO SCH (22:30)
[2017-07-05] MEDS: chlordiazePOXIDE HCL 25 MG CAPSULE PO SCH ×3 (05:16→22:21)
[2017-07-05] MEDS: METHADONE HCL 40 MG DISPERSABLE TABLET PO SCH (05:16)
--- NOTE | 2017-07-05 09:10 | PN ---
S CIWA - CIWA Score Nausea/Vomitin-No Nausea/No Vomiting Muscle Tremors: 3 Anxiety: 3 Agitation: 3 Paroxysmal Sweats: 1-Minimal Palms Moist Orientation: 0-Oriented Tacttile Disturbances: 0-None Auditory Disturbances: 0-None Visual Disturbances: 0-None Headache: 0-None Present CIWA-Ar Total Score: 10 BHS Progress Note (SOAP) Subjective: sweat tremor anxiety Objective: 07/05/17 09:09 Vital Signs Temperature 97.7 F 07/05/17 06:18 Pulse Rate 65 07/05/17 06:18 Respiratory Rate 16 07/05/17 06:18 Blood Pressure 122/74 07/05/17 06:18 O2 Sat by Pulse Oximetry (%) Laboratory Last Values WBC 12.2 K/mm3 (4.0-10.0) H D 07/04/17 06:00 RBC 3.72 M/mm3 (4.00-5.60) L 07/04/17 06:00 Hgb 9.9 GM/dL (11.7-16.9) L D 07/04/17 06:00 Hct 31.3 % (35.4-49) L 07/04/17 06:00 MCV 84.3 fl (80-96) 07/04/17 06:00 MCH 26.5 pg (25.7-33.7) 07/04/17 06:00 MCHC 31.5 g/dl (32.0-35.9) L 07/04/17 06:00 RDW 14.9 % (11.9-15.9) 07/04/17 06:00 Plt Count 424 K/MM3 (134-434) D 07/04/17 06:00 MPV 9.3 fl (7.5-11.1) 07/04/17 06:00 Sodium 143 mmol/L (136-145) 07/04/17 06:00 Potassium 3.5 mmol/L (3.5-5.1) 07/04/17 06:00 Chloride 105 mmol/L (98-107) 07/04/17 06:00 Carbon Dioxide 30 mmol/L (21-32) 07/04/17 06:00 Anion Gap 8 (8-16) 07/04/17 06:00 BUN 17 mg/dL (7-18) D 07/04/17 06:00 Creatinine 0.9 mg/dL (0.7-1.3) 07/04/17 06:00 Creat Clearance w eGFR > 60 (>60) 07/04/17 06:00 Random Glucose 146 mg/dL (74-106) H D 07/04/17 06:00 Hemoglobin A1c % 5.6 % (4.8-6.0) 07/04/17 06:00 Calcium 8.0 mg/dL (8.5-10.1) L 07/04/17 06:00 Total Bilirubin 0.3 mg/dL (0.2-1.0) D 07/04/17 06:00 AST 21 U/L (15-37) 07/04/17 06:00 ALT 37 U/L (12-78) D 07/04/17 06:00 Alkaline Phosphatase 88 U/L (45-117) 07/04/17 06:00 Total Protein 7.5 g/dl (6.4-8.2) 07/04/17 06:00 Albumin 3.3 g/dl (3.4-5.0) L 07/04/17 06:00 Urine Color Yellow 07/03/17 Unknown Urine Appearance Slcloudy 07/03/17 Unknown Urine pH 5.0 (5.0-8.0) 07/03/17 Unknown Ur Specific [place] 1.027 (1.001-1.035) 07/03/17 Unknown Urine Protein Negative (NEGATIVE) 07/03/17 Unknown Urine Glucose (UA) Negative (NEGATIVE) 07/03/17 Unknown Urine Ketones Negative (NEGATIVE) 07/03/17 Unknown Urine Blood Negative (NEGATIVE) 07/03/17 Unknown Urine Nitrite Negative (NEGATIVE) 07/03/17 Unknown Urine Bilirubin Negative (NEGATIVE) 07/03/17 Unknown Urine Urobilinogen Negative mg/dL (0.2-1.0) 07/03/17 Unknown Ur Leukocyte Esterase Negative (NEGATIVE) 07/03/17 Unknown RPR Titer Nonreactive (NONREACTIVE) 07/04/17 06:00 lab noted Assessment: 07/05/17 09:10 withdrawal sx Plan: continue detox
[2017-07-05] MEDS: PRENATAL VITAMINS W/ FOLIC ACID TABLET (FP) PO SCH (10:12)
[2017-07-05] MEDS: NICOTINE 14 MG/24 HOURS TOPICAL PATCH TD SCH (10:13)
--- NOTE | 2017-07-05 17:47 | PN ---
[facility] Progress Note Note: Patient was evaluated at the bedside post witness fall by DELLA Wellington. as per Eliz, patient fell and did not hit his head. Patient is AOx3, in no apparent distress , full ROM, no bruising present. Denies any pain or discomfort. Plan: continue to monitor, warm compress PRN, Tylenol PRN
[2017-07-05] MEDS: THIAMINE HCL 100 MG TABLET (FP) PO SCH (22:19)
[2017-07-05] MEDS: chlordiazePOXIDE 5 MG CAPSULE PO SCH (22:19)
[2017-07-05] MEDS: AMITRIPTYLINE HCL 25 MG TABLET (FP) PO SCH (22:19)
[2017-07-06] MEDS: METHADONE HCL 40 MG DISPERSABLE TABLET PO SCH (07:27)
[2017-07-06] MEDS: chlordiazePOXIDE 5 MG CAPSULE PO SCH ×3 (07:30→17:35)
[2017-07-06] MEDS: PRENATAL VITAMINS W/ FOLIC ACID TABLET (FP) PO SCH (10:22)
[2017-07-06] MEDS: NICOTINE 14 MG/24 HOURS TOPICAL PATCH TD SCH (10:22)
--- NOTE | 2017-07-06 10:32 | PN ---
BHS Progress Note (SOAP) Subjective: sweat alert oriented x 3 tremor anxiety Objective: 07/06/17 10:33 Vital Signs Temperature 98 F 07/06/17 06:00 Pulse Rate 77 07/06/17 06:00 Respiratory Rate 18 07/06/17 06:00 Blood Pressure 130/80 07/06/17 06:00 O2 Sat by Pulse Oximetry (%) Laboratory Last Values WBC 12.2 K/mm3 (4.0-10.0) H D 07/04/17 06:00 RBC 3.72 M/mm3 (4.00-5.60) L 07/04/17 06:00 Hgb 9.9 GM/dL (11.7-16.9) L D 07/04/17 06:00 Hct 31.3 % (35.4-49) L 07/04/17 06:00 MCV 84.3 fl (80-96) 07/04/17 06:00 MCH 26.5 pg (25.7-33.7) 07/04/17 06:00 MCHC 31.5 g/dl (32.0-35.9) L 07/04/17 06:00 RDW 14.9 % (11.9-15.9) 07/04/17 06:00 Plt Count 424 K/MM3 (134-434) D 07/04/17 06:00 MPV 9.3 fl (7.5-11.1) 07/04/17 06:00 Sodium 143 mmol/L (136-145) 07/04/17 06:00 Potassium 3.5 mmol/L (3.5-5.1) 07/04/17 06:00 Chloride 105 mmol/L (98-107) 07/04/17 06:00 Carbon Dioxide 30 mmol/L (21-32) 07/04/17 06:00 Anion Gap 8 (8-16) 07/04/17 06:00 BUN 17 mg/dL (7-18) D 07/04/17 06:00 Creatinine 0.9 mg/dL (0.7-1.3) 07/04/17 06:00 Creat Clearance w eGFR > 60 (>60) 07/04/17 06:00 Random Glucose 146 mg/dL (74-106) H D 07/04/17 06:00 Hemoglobin A1c % 5.6 % (4.8-6.0) 07/04/17 06:00 Calcium 8.0 mg/dL (8.5-10.1) L 07/04/17 06:00 Total Bilirubin 0.3 mg/dL (0.2-1.0) D 07/04/17 06:00 AST 21 U/L (15-37) 07/04/17 06:00 ALT 37 U/L (12-78) D 07/04/17 06:00 Alkaline Phosphatase 88 U/L (45-117) 07/04/17 06:00 Total Protein 7.5 g/dl (6.4-8.2) 07/04/17 06:00 Albumin 3.3 g/dl (3.4-5.0) L 07/04/17 06:00 Urine Color Yellow 07/03/17 Unknown Urine Appearance Slcloudy 07/03/17 Unknown Urine pH 5.0 (5.0-8.0) 07/03/17 Unknown Ur Specific [place] 1.027 (1.001-1.035) 07/03/17 Unknown Urine Protein Negative (NEGATIVE) 07/03/17 Unknown Urine Glucose (UA) Negative (NEGATIVE) 07/03/17 Unknown Urine Ketones Negative (NEGATIVE) 07/03/17 Unknown Urine Blood Negative (NEGATIVE) 07/03/17 Unknown Urine Nitrite Negative (NEGATIVE) 07/03/17 Unknown Urine Bilirubin Negative (NEGATIVE) 07/03/17 Unknown Urine Urobilinogen Negative mg/dL (0.2-1.0) 07/03/17 Unknown Ur Leukocyte Esterase Negative (NEGATIVE) 07/03/17 Unknown RPR Titer Nonreactive (NONREACTIVE) 07/04/17 06:00 lab noted Assessment: 07/06/17 10:33 withdrawal sx 07/06/17 10:33 fall protocol Plan: continue detox room to near by nurse station
--- NOTE | 2017-07-06 11:04 | EKG ---
Test Reason : Blood Pressure : / mmHG Vent. Rate : 077 BPM Atrial Rate : 077 BPM P-R Int : 168 ms QRS Dur : 098 ms QT Int : 408 ms P-R-T Axes : 059 -20 038 degrees QTc Int : 461 ms NORMAL SINUS RHYTHM POSSIBLE LEFT ATRIAL ENLARGEMENT LEFT VENTRICULAR HYPERTROPHY ABNORMAL ECG WHEN COMPARED WITH ECG OF 03-JUL-2017 17:10, NO SIGNIFICANT CHANGE WAS FOUND Confirmed by MENDY CRAMER, DI ([id number]) on 07/06/2017 11:04:24 AM Referred By: Confirmed By:DI BROOKE MD
[2017-07-06] MEDS ORDERED: LACTULOSE 20 GM/30 ML UDC (FOR ORAL USE ONLY) PO PRN (17:30)
--- NOTE | 2017-07-06 21:26 | PN ---
[facility] Progress Note Note: patient with elevated ammonia levels of 70.5 Patient was evaluated at the bedside: AOx3, ambulating, no signs and symptoms of distress Lactulose 20mg TID ordered D/C Tylenol Increase fluids Continue to monitor Continue Detox
[2017-07-06] MEDS: AMITRIPTYLINE HCL 25 MG TABLET (FP) PO SCH (22:12)
[2017-07-06] MEDS: THIAMINE HCL 100 MG TABLET (FP) PO SCH (22:12)
[2017-07-06] MEDS: chlordiazePOXIDE HCL 10 MG CAPSULE PO SCH (22:14)
[2017-07-07] MEDS: METHADONE HCL 40 MG DISPERSABLE TABLET PO SCH (05:37)
[2017-07-07] MEDS: chlordiazePOXIDE HCL 10 MG CAPSULE PO SCH ×2 (05:40→11:00)
[2017-07-07] MEDS ORDERED: LACTULOSE 20 GM/30 ML UDC (FOR ORAL USE ONLY) PO SCH (06:00)
--- NOTE | 2017-07-07 09:38 | PN ---
S Progress Note (SOAP) Subjective: ALERT,AMBULATION WITH CANE ON LACTULOSE 20 GRAMS PO TID,AMMONIA LEVEL IS 71.5 Objective: 07/07/17 09:39 Vital Signs Temperature 94.1 F L 07/07/17 06:21 Pulse Rate 93 H 07/07/17 06:21 Respiratory Rate 19 07/07/17 06:21 Blood Pressure 134/79 07/07/17 06:21 O2 Sat by Pulse Oximetry (%) Assessment: 07/07/17 09:40 WITHDRAWAL SYMPTOM Plan: CONTINUE DETOX,ENCOURAGE ORAL FLUID,CONTINUE LACTULOSE,REPEAT CBC,AMMONIA LEVEL IN AM
--- NOTE | 2017-07-07 09:43 | PN ---
S Progress Note Note: PATIENT DID NOT WANT TO COMPLETE TREATMENT,SIGNED RELEASE AMA,SEEN BY COUNSELOR
--- NOTE | 2017-07-07 09:46 | DS ---
[facility] Detox Discharge Summary Admission Date: 07/03/17 Discharge Date: 07/07/17 - History Present History: Alcohol Dependence, MMTP Additional Comments: PATIENT DID NOT WANT TO COMPLETE TREATMENT,SIGNED RELEASE AMA,ADVISE TO SEE PMD FOR FOLLOW UP Pertinent Past History: NICOTINE DEPENDENCE HIGH AMMONIA LEVEL CANE AMBULATION ARTHRITIS BOTH KNEES - Physical Exam Results Vital Signs: Vital Signs Temperature 94.1 F L 07/07/17 06:21 Pulse Rate 93 H 07/07/17 06:21 Respiratory Rate 19 07/07/17 06:21 Blood Pressure 134/79 07/07/17 06:21 O2 Sat by Pulse Oximetry (%) Pertinent Admission Physical Exam Findings: WITHDRAWAL SYMPTOM AND FINDING - Medication Discharge Medications: Ambulatory Orders Lactulose (Oral Use) [Cephulac -] 20 gm PO TID #20 udc 07/07/17 - Diagnosis (1) Alcohol dependence with uncomplicated withdrawal Current Visit: Yes Status: Acute (2) Nicotine dependence Current Visit: Yes Status: Acute Qualifiers: Nicotine product type: cigarettes Substance use status: in withdrawal Qualified Code(s): F17.213 - Nicotine dependence, cigarettes, with withdrawal (3) MDD (major depressive disorder) Current Visit: Yes Status: Chronic Qualifiers: Major depression recurrence: recurrent Active/Remission status: in partial remission Qualified Code(s): F33.41 - Major depressive disorder, recurrent, in 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
[2017-07-07 09:54] VITALS: BP 122/77; PULSE 95; TEMP 97.9
[2017-07-07] MEDS: PRENATAL VITAMINS W/ FOLIC ACID TABLET (FP) PO SCH (10:49)
[2017-07-07] MEDS: NICOTINE 14 MG/24 HOURS TOPICAL PATCH TD SCH (11:00)
--- NOTE | 2017-07-07 13:50 | PN ---
Psychiatric Progress Note Vital Signs: Vital Signs Period Temp Pulse Resp BP Sys/Barnard Pulse Ox Last 24 Hr 94.1 F-98.4 F 82-95 17-20 103-140/65-91 Date of Session: 07/07/17 Chief Complaint:: " I want to leave." HPI: Pt. admitted to for alcohol and cocaine dependence. Pt. currently has an elevated ammonia level. ROS: High ammonia level Current Medications: Active Medications Generic Name Dose Route Start Last Admin Trade Name Freq PRN Reason Stop Dose Admin Al Hydroxide/Mg Hydroxide 30 ml 07/03/17 15:32 Mylanta Oral Suspension - PO Q6H PRN DYSPEPSIA Amitriptyline HCl 50 mg 07/04/17 22:00 07/06/17 22:12 Elavil - PO 50 mg HS MIKAL Administration Chlordiazepoxide HCl 10 mg 07/06/17 23:00 07/07/17 11:00 Librium - PO 07/07/17 17:01 Not Given [id number] MIKAL Eucalyptus/Menthol/Phenol/Sorbitol 1 each 07/03/17 15:32 Cepastat Lozenge - MM Q4H PRN SORE THROAT Guaifenesin 10 ml 07/03/17 15:32 Robitussin Dm - PO Q6H PRN COUGH Ibuprofen 400 mg 07/03/17 15:32 Motrin - PO Q6H PRN PAIN LEVEL 4-6 Lactulose 20 gm 07/07/17 06:00 07/07/17 05:37 Cephulac (Oral Use) PO 20 gm TID MIKAL Administration Loperamide HCl 4 mg 07/03/17 15:32 Imodium - PO Q6H PRN DIARRHEA Magnesium Citrate 300 ml 07/03/17 15:32 Citroma - PO Q48H PRN CONSTIPATION Magnesium Hydroxide 30 ml 07/03/17 15:32 Milk Of Magnesia - PO DAILY PRN CONSTIPATION Methadone HCl 40 mg 07/04/17 09:15 07/07/17 05:37 Dolophine - PO 07/11/17 09:14 40 mg DAILY@0600 [facility] Administration Nicotine 14 mg 07/04/17 10:00 07/07/17 11:00 Nicoderm Patch - TD Not Given DAILY [facility] Nicotine Polacrilex 2 mg 07/03/17 15:32 Nicorette Gum - BUC Q2H PRN NICOTINE REPLACEMENT RX Multivit/Folic Acid/Iron 1 tab 07/04/17 10:00 07/07/17 10:49 Vitamins (Sjr) - PO 1 tab DAILY MIKAL Administration Pseudoephedrine/Triprolidine 1 combo 07/03/17 15:32 Actifed - PO TID PRN NASAL CONGESTION Thiamine HCl 100 mg 07/03/17 22:00 07/06/17 22:12 Vitamin B1 - PO 100 mg HS MIKAL Administration Medication(s) Change(s): No Current Side Effect: No Lab tests ordered: No Lab tests reviewed: Yes Provider note:: Asked for a psychiatric reconsultation for patient with an elevated ammonia level. Pt. approached in the hallway and able to ambulate towards his room and speak to report writer. Pt. made aware that an increase in ammonia level can cause cognitive impairment. Pt. coherent, approachable, not showing any signs of irritability or disorientation and able to answer questions appropriately. Pt. stated to report writer that its important he gets discharged today or he will lose his apartment because he owns the [employer] money.Pt. able to accept feedback but is focused on leaving and stated he will sign out AMA. Pt. encourged to follow up with his PCP. Pt. denies sucidial and homicidal ideation. Total face to face time:: 25 Mental Status Exam - Mental Status Exam Alert and Oriented to: Time, Place, Person Cognitive Function: Good Patient Appearance: Well Groomed Mood: Euthymic Affect: Mood Congruent Patient Behavior: Appropriate, Cooperative Speech Pattern: Appropriate Voice Loudness: Normal Thought Process: Goal Oriented Thought Disorder: Not Present Hallucinations: Denies Suicidal Ideation: Denies Homicidal Ideation: Denies Insight/Judgement: Poor Sleep: Fair Appetite: Good Gait/Station: Other (Pt. uses a cane to ambulate.) Psychiatric Treatment Plan - Problem List (2) Nicotine dependence Qualifiers: Nicotine product type: cigarettes Substance use status: in withdrawal Qualified Code(s): F17.213 - Nicotine dependence, cigarettes, with withdrawal (4) MDD (major depressive disorder) Qualifiers: Major depression recurrence: recurrent Active/Remission status: in partial remission Qualified Code(s): F33.41 - Major depressive disorder, recurrent, in partial remission Comment: Self reports. (5) Cocaine dependence Qualifiers: Substance use status: uncomplicated Qualified Code(s): F14.20 - Cocaine dependence, uncomplicated (6) Methadone maintenance therapy patient Comment: verification pending
== END 2017-07-07 13:10 | disposition left against medical advice (07) | DRG 894 ==
LOC: YASAS 10:31 → Y6N 16:19
PROVIDERS: ADMIT Internal Medicine; ATTEND Internal Medicine
PROC: HZ2ZZZZ Detoxification Services for Substance Abuse Treatment (ICD-10-PCS; principal; 2017-07-03)
DX: F11.20 Opioid dependence, uncomplicated (principal); F10.230 Alcohol dependence with withdrawal, uncomplicated; F17.213 Nicotine dependence, cigarettes, with withdrawal; F19.282 Other psychoactive substance dependence with psychoactive substance-induced sleep disorder; F33.9 Major depressive disorder, recurrent, unspecified; F19.24 Other psychoactive substance dependence with psychoactive substance-induced mood disorder; I10 Essential (primary) hypertension; M12.9 Arthropathy, unspecified; R79.89 Other specified abnormal findings of blood chemistry; R23.2 Flushing; Z99.89 Dependence on other enabling machines and devices
CPT/HCPCS: 36415; 80053; 81003; 82140; 83036; 85027; 86593; 93005; 93010

== ENCOUNTER 2017-08-29 17:03 | Inpatient (IN) | payer OTHER ==
[2017-08-29 17:05] VITALS: BMI 30.7
--- NOTE | 2017-08-29 20:29 | HP ---
COWS - Scale Resting Pulse: 1= [place] 81-100 Sweatin=Flushed/Facial Moisture Restless Observation: 0= Sits Still Pupil Size: 1= Pupils >than Normal Bone or Joint Aches: 4=Acute Joint/Muscle Pain Runny Nose/ Eye Tearin= Nasal Congestion GI Upset > 30mins: 0= None Tremor Observation: 4= Gross Tremor/Twitching Yawning Observation: 0= None Anxiety or Irritability: 2=Irritable/Anxious Goose Flesh Skin: 0=Smooth Skin COWS Score: 15 CIWA Score - CIWA Score Nausea/Vomitin Muscle Tremors: 4-Moderate,w/Arms Extend Anxiety: 3 Agitation: 1-Slight > Activity Paroxysmal Sweats: 1-Minimal Palms Moist Orientation: 1-Uncertain about Date Tacttile Disturbances: 0-None Auditory Disturbances: 0-None Visual Disturbances: 0-None Headache: 0-None Present CIWA-Ar Total Score: 13 Admission ROS S - HPI Chief Complaint: Alcohol and opioid withdrawal symptoms Allergies/Adverse Reactions: Allergies Allergy/AdvReac Type Severity Reaction Status Date / Time No Known Allergies Allergy Verified 08/29/17 18:20 History of Present Illness: 66 years old male with a long history of alcohol and opioid dependence is seeking admission to detox. Patient has been to previous detox and reports five years of sobriety. Patient has medical history of HTN, DM type 2, left knee arthritis, PPD positive and depression. Patient is non compliant with his medications and reports that he has not seen his primary physician for a while and is not on any prescribed medication at this time. Patient is noted with dry mucous membrane. He is on methadone 60mg oral with [facility] MMTP. Dose is yet to be confirmed by the nurse. Exam Limitations: No Limitations - Ebola screening Have you traveled outside of the country in the last 21 days: No Have you had contact with anyone from an Ebola affected area: No Have you been sick,other than usual withdrawal symptoms: No Do you have a fever: No - Review of Systems Constitutional: Chills, Loss of Appetite, Malaise, Night Sweats, Changes in sleep EENT: reports: No Symptoms Reported Respiratory: reports: No Symptoms reported Cardiac: reports: No Symptoms Reported GI: reports: Nausea, Poor Appetite, Poor Fluid Intake, Abdominal cramping : reports: No Symptoms Reported Musculoskeletal: reports: Back Pain, Joint Pain, Muscle Pain, Joint Stiffness Integumentary: reports: Dryness, Flushing Neuro: reports: Tingling, Tremors Endocrine: reports: No Symptoms Reported Hematology: reports: No Symptoms Reported Psychiatric: reports: Orientated x3, Anxious Other Systems: Reviewed and Negative Patient History - Patient Medical History Hx Anemia: No Hx Asthma: No Hx Chronic Obstructive Pulmonary Disease (COPD): No Hx Cancer: No Hx Cardiac Disorders: No Hx Congestive Heart Failure: No Hx Hypertension: Yes (Non complaint with meds.) Hx Hypercholesterolemia: No Hx Pacemaker: No HX Cerebrovascular Accident: No Hx Seizures: No Hx Dementia: No Hx Diabetes: Yes (Not on medication and non compliant with meds.) Hx Gastrointestinal Disorders: No Hx Liver Disease: No Hx Genitourinary Disorders: No Hx Sexually Transmitted Disorders: No Hx Renal Disease (ESRD): No Hx Thyroid Disease: No Hx Human Immunodeficiency Virus (HIV): No ( NEGATIVE 2014) Hx Hepatitis C: No Hx Depression: Yes (Not on medication) Hx Suicide Attempt: No Hx Bipolar Disorder: Yes Hx Schizophrenia: No Other Medical History: Left knee arthritis - Not on medication - Patient Surgical History Past Surgical History: No Hx Neurologic Surgery: No Hx Cataract Extraction: No Hx Cardiac Surgery: No Hx Lung Surgery: No Hx Breast Surgery: No Hx Breast Biopsy: No Hx Abdominal Surgery: No Hx Appendectomy: No Hx Cholecystectomy: No Hx Genitourinary Surgery: No Hx Section: No Hx Orthopedic Surgery: No Anesthesia Reaction: No - PPD History Previous Implant?: Yes Documented Results: Positive w/proof Results: c-x-ray (neg.) - Smoking Cessation Smoking history: Current every day smoker Have you smoked in the past 12 months: Yes Aproximately how many cigarettes per day: 10 Cigars Per Day: 0 Hx Chewing Tobacco Use: No Initiated information on smoking cessation: Yes 'Breaking Loose' booklet given: 08/29/17 - Substances Abused Alcohol Route: Oral Frequency: Daily Amount used: liquor- 2 pints, beer- 1 six pack Age of first use: 42 Date of Last Use: 08/28/17 Heroin Route: Inhalation Frequency: Daily Amount used: 2 bags Age of first use: 42 Date of Last Use: 08/29/17 Cocaine Route: Inhalation Frequency: Daily Amount used: 2 bags Age of first use: 37 Date of Last Use: 08/27/17 Family Disease History - Family Disease History Family Disease History: Diabetes: Mother ( CANCER OF BREAST), CA: Father (alcohol dependence;LUNG CA ), Mother, Other: Father Admission Physical Exam [facility] - Vital Signs Vital Signs: Vital Signs - 24 hr 08/29/17 17:03 Temperature 97 F L Pulse Rate 86 Respiratory 18 Rate Blood Pressure 149/78 - Physical General Appearance: Yes: Moderate Distress, Tremorous, Irritable, Sweating, Anxious HEENTM: Yes: EOMI, Normal ENT Inspection, Normal Voice, Other (upper and lower dentures) Respiratory: Yes: Lungs Clear, Normal Breath Sounds, No Respiratory Distress Neck: Yes: Supple Breast: Yes: Breast Exam Deferred Cardiology: Yes: Regular Rhythm, Regular Rate, S1, S2 Genitourinary: Yes: Within Normal Limits Extremities: Yes: Tremors Neurological: Yes: Alert, Normal Mood/Affect Integumentary: Yes: Dry Lymphatic: Yes: Within Normal Limits - Diagnostic (1) PPD positive Current Visit: Yes Status: Chronic (2) Alcohol dependence with uncomplicated withdrawal Current Visit: Yes Status: Chronic (3) Arthritis Current Visit: Yes Status: Chronic (4) Cocaine dependence Current Visit: Yes Status: Chronic Qualifiers: Substance use status: uncomplicated Qualified Code(s): F14.20 - Cocaine dependence, uncomplicated (5) Nicotine dependence Current Visit: Yes Status: Chronic Qualifiers: Nicotine product type: cigarettes Substance use status: in withdrawal Qualified Code(s): F17.213 - Nicotine dependence, cigarettes, with withdrawal (6) HTN (hypertension) Current Visit: Yes Status: Chronic Qualifiers: Hypertension type: essential hypertension Qualified Code(s): I10 - Essential (primary) hypertension Comment: PATIENT REPORTS TAKING HCTZ 12.5 MG DAILY, DENIES TAKING LISINOPRIL (7) Methadone maintenance therapy patient Current Visit: Yes Status: Chronic Comment: verification pending (8) Dehydration Current Visit: Yes Status: Acute Cleared for Admission S - Detox or Rehab [facility] Level of Care: Medically Managed Detox Regimen/Protocol: Librium [facility] Breath Alcohol Content Breath Alcohol Content: 0 Urine Drug Screen - Results Drug Screen Negative: No Urine Drug Screen Results: KEVIN-Cocaine, OPI-Opiates, MTD-Methadone, TCA- Tricyclic Antidepress, OXY-Oxycodone
[2017-08-29] MEDS ORDERED: NICOTINE POLACRILEX 2 MG GUM BC PRN (20:56)
[2017-08-29] MEDS ORDERED: P-EPHED 60MG/TRIPROLIDI 2.5MG TABLET PO PRN (20:56)
[2017-08-29] MEDS ORDERED: MAG HYDROX/AL HYDROX/SIMETH 30 ML UNIT-DOSE CUP PO PRN (20:56)
[2017-08-29] MEDS ORDERED: MENTHOL/PHENOL 1 EACH UD MM PRN (20:56)
[2017-08-29] MEDS ORDERED: ACETAMINOPHEN 325 MG TABLET (FP) PO PRN (20:56)
[2017-08-29] MEDS ORDERED: MAGNESIUM CITRATE 300 ML BOTTLE PO PRN (20:56)
[2017-08-29] MEDS ORDERED: chlordiazePOXIDE HCL 25 MG CAPSULE PO PRN (20:56)
[2017-08-29] MEDS ORDERED: LOPERAMIDE HCL 2 MG CAPSULE PO PRN (20:56)
[2017-08-29] MEDS ORDERED: MAGNESIUM HYDROX 2400MG/30ML ORAL SUSPENSION 30 ML CUP PO PRN (20:56)
[2017-08-29] MEDS ORDERED: guaiFENesin/D-METHORPHAN HB 10 ML UNIT-DOSE CUPS PO PRN (20:56)
[2017-08-29] MEDS: THIAMINE HCL 100 MG TABLET (FP) PO SCH (21:54)
[2017-08-29] MEDS ORDERED: MELATONIN 5 MG TABLETS PO PRN (22:00)
[2017-08-29] MEDS: chlordiazePOXIDE HCL 25 MG CAPSULE PO SCH (22:59)
[2017-08-30 02:06] LABS: URINE APPEARANCE SLCLOUDY; URINE BILIRUBIN NEGATIVE (<2.0 mg/dL); URINE BLOOD NEGATIVE (NEGATIVE); URINE COLOR DKYELLOW; URINE GLUCOSE (UA) NEGATIVE (NEGATIVE); URINE KETONE NEGATIVE (NEGATIVE); URINE LEUK ESTERASE NEGATIVE (NEGATIVE); URINE NITRITE NEGATIVE (NEGATIVE); URINE PROTEIN NEGATIVE (NEGATIVE)
[2017-08-30] MEDS: chlordiazePOXIDE HCL 25 MG CAPSULE PO SCH ×4 (05:07→22:14)
[2017-08-30] MEDS ORDERED: METHADONE HCL 10 MG TABLET PO SCH (07:00)
[2017-08-30] MEDS ORDERED: METHADONE HCL 10 MG TABLET ONE (07:47)
[2017-08-30] MEDS ORDERED: METHADONE HCL 40 MG DISPERSABLE TABLET ONE (07:47)
[2017-08-30] MEDS: METHADONE 40 MG, METHADONE 20 MG PO SCH (07:47)
[2017-08-30 10:21] LABS: CHLORIDE 104 mmol/L (98-107); POTASSIUM 3.7 mmol/L (3.5-5.1); SODIUM 140 mmol/L (136-145)
[2017-08-30 10:32] LABS: ALBUMIN 3.3 g/dl (3.4-5.0); ALK PHOS 63 U/L (45-117); ANION GAP 9 (8-16); BILIRUBIN,TOTAL 0.2 mg/dL (0.2-1.0); BLOOD UREA NITROGEN 21 mg/dL (7-18); CALCIUM 8.3 mg/dL (8.5-10.1); CO2 27 mmol/L (21-32); CREATININE 0.8 mg/dL (0.7-1.3); GLUCOSE,RANDOM 105 mg/dL (74-106); HEMOGLOBIN 13.7 GM/dL (11.7-16.9); MCH 32.1 pg (25.7-33.7); MCHC 34.2 g/dl (32.0-35.9); MEAN PLT VOLUME 7.6 fl (7.5-11.1); PLATELET COUNT 240 K/MM3 (134-434); RBC 4.26 M/mm3 (4.00-5.60); SGOT/AST 19 U/L (15-37); SGPT/ALT 22 U/L (12-78); TOT PROT 6.7 g/dl (6.4-8.2); WHITE BLOOD COUNT 4.5 K/mm3 (4.0-10.0)
[2017-08-30] MEDS: PRENATAL VITAMINS W/ FOLIC ACID TABLET (FP) PO SCH (10:33)
[2017-08-30] MEDS: NICOTINE 14 MG/24 HOURS TOPICAL PATCH TD SCH (10:35)
--- NOTE | 2017-08-30 10:55 | EKG ---
Test Reason : Blood Pressure : / mmHG Vent. Rate : 075 BPM Atrial Rate : 075 BPM P-R Int : 152 ms QRS Dur : 114 ms QT Int : 418 ms P-R-T Axes : 024 -20 019 degrees QTc Int : 466 ms NORMAL SINUS RHYTHM MODERATE VOLTAGE CRITERIA FOR LVH, MAY BE NORMAL VARIANT BORDERLINE ECG WHEN COMPARED WITH ECG OF 05-JUL-2017 19:04, NO SIGNIFICANT CHANGE WAS FOUND Confirmed by MAY CRAMER, XIANG ([id number]) on 08/30/2017 10:55:17 AM Referred By: Confirmed By:XIANG OLVERA MD
--- NOTE | 2017-08-30 11:14 | PN ---
[facility] CIWA - CIWA Score Nausea/Vomitin-No Nausea/No Vomiting Muscle Tremors: None Anxiety: 4-Mod. Anxious/Guarded Agitation: 2 Paroxysmal Sweats: 2 Orientation: 2-Disoriented Date<2 days Tacttile Disturbances: 3-Moderate Itch/Numb/Burn Auditory Disturbances: 3-Moderate Harsh/Frighten Visual Disturbances: 0-None Headache: 0-None Present CIWA-Ar Total Score: 16 S COWS - Scale Resting Pulse: 0= [place] 80 or Below Sweatin= Chills/Flushing Restless Observation: 1= Difficult to Sit Still Pupil Size: 0= Normal to Room Light Bone or Joint Aches: 2= Severe Diffuse Aches Runny Nose/ Eye Tearin= None GI Upset > 30mins: 1= Stomach Cramp Tremor Observation of Outstretched Hands: 0= None Yawning Observation: 1= 1-2x During Session Anxiety or Irritability: 2=Irritable/Anxious Goose Flesh Skin: 3=Piloerection COWS Score: 11 S Progress Note (SOAP) Subjective: Body Aches, Interrupted Sleep, Fatigue, Sweating. Objective: PATIENT A & O X 2 (UNCERTAIN ABOUT CURRENT DAY / DATE). NO ACUTE DISTRESS. 08/30/17 11:12 Vital Signs Temperature 96.7 F L 08/30/17 09:17 Pulse Rate 64 08/30/17 09:17 Respiratory Rate 18 08/30/17 09:17 Blood Pressure 123/68 08/30/17 09:17 O2 Sat by Pulse Oximetry (%) Laboratory Tests 08/29/17 08/30/17 08/30/17 23:54 05:08 07:30 WBC 4.5 D RBC 4.26 Hgb 13.7 D Hct 40.0 D MCV 94.0 D MCH 32.1 D MCHC 34.2 RDW 13.0 D Plt Count 240 D MPV 7.6 D Sodium Potassium Chloride Carbon Dioxide Anion Gap BUN Creatinine Creat Clearance w eGFR POC Glucometer 168 Random Glucose Calcium Total Bilirubin AST ALT Alkaline Phosphatase Total Protein Albumin Urine Color Dkyellow Urine Appearance Slcloudy Urine pH 5.0 Ur Specific [place] 1.028 Urine Protein Negative Urine Glucose (UA) Negative Urine Ketones Negative Urine Blood Negative Urine Nitrite Negative Urine Bilirubin Negative Urine Urobilinogen 2.0 Ur Leukocyte Esterase Negative 08/30/17 07:30 WBC RBC Hgb Hct MCV MCH MCHC RDW Plt Count MPV Sodium 140 Potassium 3.7 Chloride 104 Carbon Dioxide 27 Anion Gap 9 BUN 21 H D Creatinine 0.8 Creat Clearance w eGFR > 60 POC Glucometer Random Glucose 105 D Calcium 8.3 L Total Bilirubin 0.2 D AST 19 ALT 22 D Alkaline Phosphatase 63 D Total Protein 6.7 Albumin 3.3 L Urine Color Urine Appearance Urine pH Ur Specific [place] Urine Protein Urine Glucose (UA) Urine Ketones Urine Blood Urine Nitrite Urine Bilirubin Urine Urobilinogen Ur Leukocyte Esterase LABS NOTED. RPR RESULT PENDING. 08/30/17 11:13 Assessment: 08/30/17 11:12 WITHDRAWAL SYMPTOMS. Plan: CONTINUE DETOX. INCREASE DAILY PO FLUID INTAKE.
--- NOTE | 2017-08-30 14:41 | CONSULT ---
[facility] Psychiatric Consult - Data Date of interview: 08/30/17 Admission source: [facility] Identifying data: History of multiple admissions to [facility] [place] 66 y/o male seeking detox treatment on for alcohol,cocaine and opioid dependence.Patient is ,a father of one,domiciled,unemployed and supported on SSI benefits. Substance Abuse History: Confirmed by patient in this interview. Details in current [facility] report : Smoking history: Current every day smoker. Have you smoked in the past 12 months: Yes. Aproximately how many cigarettes per day: 10. Cigars Per Day: 0. Hx Chewing Tobacco Use: No. Initiated information on smoking cessation: Yes. 'Breaking Loose' booklet given: 08/29/17. - Substances Abused. Alcohol. Route: Oral. Frequency: Daily. Amount used: liquor- 2 pints, beer- 1 six pack. Age of first use: 42. Date of Last Use: . Heroin. Route: Inhalation. Frequency: Daily. Amount used: 2 bags. Age of first use: 42. Date of Last Use: 08/29/17. Cocaine. Route: Inhalation. Frequency: Daily. Amount used: 2 bags. Age of first use: 37. Date of Last Use: 08/27/17 Medical History: Hypertension,diabetes mellitus,positive PPD status and arthritis of left knee. Psychiatric History: Patient denies history of psychiatric hospitalizations in this encounter.Mr Norton [facility] the [place].Diagnosed with MDD. Patient declares his lack of interest for prozac,zoloft or olanzapine." I have always been taking elavil.That is the medication that really helps me sleep and feel well." Denies history of suicide attempts. Physical/Sexual Abuse/Trauma History: Patient denies. Additional Comment: Urine Drug Screen Results: KEVIN-Cocaine, OPI-Opiates, MTD- Methadone, TCA-Tricyclic Antidepressant, OXY-Oxycodone.Noted. Mental Status Exam - Mental Status Exam Alert and Oriented to: Time, Place, Person Cognitive Function: Good Patient Appearance: Well Groomed Mood: Withdrawn Affect: Mood Congruent Patient Behavior: Fatigued, Cooperative Speech Pattern: Clear (in rwandan), Appropriate Voice Loudness: Normal Thought Process: Goal Oriented Thought Disorder: Not Present Hallucinations: Denies Suicidal Ideation: Denies Homicidal Ideation: Denies Insight/Judgement: Poor Sleep: Poorly, Difficulty falling asleep Appetite: Fair Muscle strength/Tone: Normal Gait/Station: Other (walks with cane) Psychiatric Findings - Problem List ([place] 1, 2,3) (1) Opioid dependence on agonist therapy Current Visit: Yes Status: Acute (2) Alcohol dependence with uncomplicated withdrawal Current Visit: Yes Status: Acute (3) Cocaine dependence Current Visit: Yes Status: Acute Qualifiers: Substance use status: uncomplicated Qualified Code(s): F14.20 - Cocaine dependence, uncomplicated (4) Nicotine dependence Current Visit: Yes Status: Acute Qualifiers: Nicotine product type: cigarettes Substance use status: in withdrawal Qualified Code(s): F17.213 - Nicotine dependence, cigarettes, with withdrawal (5) Drug-induced mood disorder Current Visit: Yes Status: Acute (6) Insomnia Current Visit: Yes Status: Acute - Initial Treatment Plan Initial Treatment Plan: Records revisited.Psychoeducation.Sleep hygiene.Detoxification in progress.Medication : elavil 50 mg po hs.Ordered.Side effects/benefits are discussed with the patient who endorses this medication as effective + always well tolerated in the past.Mr Norton consents to resume elavil.Observation.
[2017-08-30] MEDS: AMITRIPTYLINE HCL 25 MG TABLET (FP) PO SCH (22:14)
[2017-08-30] MEDS: THIAMINE HCL 100 MG TABLET (FP) PO SCH (22:14)
[2017-08-31] MEDS ORDERED: METHADONE HCL 40 MG DISPERSABLE TABLET ONE (04:48)
[2017-08-31] MEDS ORDERED: METHADONE HCL 10 MG TABLET ONE (04:48)
[2017-08-31] MEDS: METHADONE 40 MG, METHADONE 20 MG PO SCH (05:06)
[2017-08-31] MEDS: chlordiazePOXIDE HCL 25 MG CAPSULE PO SCH ×3 (05:06→17:32)
[2017-08-31] MEDS: PRENATAL VITAMINS W/ FOLIC ACID TABLET (FP) PO SCH (10:23)
[2017-08-31] MEDS: NICOTINE 14 MG/24 HOURS TOPICAL PATCH TD SCH (10:24)
[2017-08-31] MEDS: IBUPROFEN 400 MG TABLET (FP) PO PRN ×2 (10:25→17:34)
--- NOTE | 2017-08-31 16:22 | PN ---
S CIWA - CIWA Score Nausea/Vomitin-No Nausea/No Vomiting Muscle Tremors: None Anxiety: 4-Mod. Anxious/Guarded Agitation: 2 Paroxysmal Sweats: No Perspiration Orientation: 4Disoriented Place/Person Tacttile Disturbances: 3-Moderate Itch/Numb/Burn Auditory Disturbances: 2-Mild Harshness/Frighten Visual Disturbances: 0-None Headache: 0-None Present CIWA-Ar Total Score: 15 [facility] COWS - Scale Resting Pulse: 0= [place] 80 or Below Sweatin= No chills or Flushing Restless Observation: 1= Difficult to Sit Still Pupil Size: 0= Normal to Room Light Bone or Joint Aches: 2= Severe Diffuse Aches Runny Nose/ Eye Tearin= Nasal Congestion GI Upset > 30mins: 1= Stomach Cramp Tremor Observation of Outstretched Hands: 0= None Yawning Observation: 1= 1-2x During Session Anxiety or Irritability: 2=Irritable/Anxious Goose Flesh Skin: 3=Piloerection COWS Score: 11 S Progress Note (SOAP) Subjective: Constipation, Body Aches, Poor Appetite, Interrupted Sleep. Objective: PATIENT A & O X 2 (UNCERTAIN ABOUT CURRENT LOCATION). PATIENT OBSERVED AMBULATING ON UNIT. NO ACUTE DISTRESS. 08/31/17 16:21 Vital Signs Temperature 97.2 F L 08/31/17 13:19 Pulse Rate 59 L 08/31/17 13:19 Respiratory Rate 18 08/31/17 13:19 Blood Pressure 123/70 08/31/17 13:19 O2 Sat by Pulse Oximetry (%) Laboratory Tests 08/29/17 08/30/17 08/30/17 23:54 05:08 07:30 WBC 4.5 D RBC 4.26 Hgb 13.7 D Hct 40.0 D MCV 94.0 D MCH 32.1 D MCHC 34.2 RDW 13.0 D Plt Count 240 D MPV 7.6 D Sodium Potassium Chloride Carbon Dioxide Anion Gap BUN Creatinine Creat Clearance w eGFR POC Glucometer 168 Random Glucose Calcium Total Bilirubin AST ALT Alkaline Phosphatase Total Protein Albumin Urine Color Dkyellow Urine Appearance Slcloudy Urine pH 5.0 Ur Specific [place] 1.028 Urine Protein Negative Urine Glucose (UA) Negative Urine Ketones Negative Urine Blood Negative Urine Nitrite Negative Urine Bilirubin Negative Urine Urobilinogen 2.0 Ur Leukocyte Esterase Negative RPR Titer 08/30/17 08/30/17 08/30/17 07:30 07:30 16:23 WBC RBC Hgb Hct MCV MCH MCHC RDW Plt Count MPV Sodium 140 Potassium 3.7 Chloride 104 Carbon Dioxide 27 Anion Gap 9 BUN 21 H D Creatinine 0.8 Creat Clearance w eGFR > 60 POC Glucometer 135 Random Glucose 105 D Calcium 8.3 L Total Bilirubin 0.2 D AST 19 ALT 22 D Alkaline Phosphatase 63 D Total Protein 6.7 Albumin 3.3 L Urine Color Urine Appearance Urine pH Ur Specific [place] Urine Protein Urine Glucose (UA) Urine Ketones Urine Blood Urine Nitrite Urine Bilirubin Urine Urobilinogen Ur Leukocyte Esterase RPR Titer Nonreactive 08/31/17 05:05 WBC RBC Hgb Hct MCV MCH MCHC RDW Plt Count MPV Sodium Potassium Chloride Carbon Dioxide Anion Gap BUN Creatinine Creat Clearance w eGFR POC Glucometer 95 Random Glucose Calcium Total Bilirubin AST ALT Alkaline Phosphatase Total Protein Albumin Urine Color Urine Appearance Urine pH Ur Specific [place] Urine Protein Urine Glucose (UA) Urine Ketones Urine Blood Urine Nitrite Urine Bilirubin Urine Urobilinogen Ur Leukocyte Esterase RPR Titer LABS NOTED. Assessment: 08/31/17 16:22 WITHDRAWAL SYMPTOMS. Plan: CONTINUE DETOX.
[2017-08-31] MEDS: chlordiazePOXIDE 5 MG CAPSULE PO SCH (22:19)
[2017-08-31] MEDS: AMITRIPTYLINE HCL 25 MG TABLET (FP) PO SCH (22:19)
[2017-08-31] MEDS: THIAMINE HCL 100 MG TABLET (FP) PO SCH (22:19)
[2017-09-01] MEDS ORDERED: METHADONE HCL 40 MG DISPERSABLE TABLET ONE (05:01)
[2017-09-01] MEDS ORDERED: METHADONE HCL 10 MG TABLET ONE (05:01)
[2017-09-01] MEDS: METHADONE 40 MG, METHADONE 20 MG PO SCH (05:16)
[2017-09-01] MEDS: chlordiazePOXIDE 5 MG CAPSULE PO SCH (05:17)
[2017-09-01 09:09] VITALS: BP 121/84; PULSE 82; TEMP 96
--- NOTE | 2017-09-01 11:05 | PN ---
[facility] Progress Note (SOAP) Subjective: Tremors, Sweating. Objective: PATIENT A & O X 3, OBSERVED AMBULATING ON UNIT. NO ACUTE DISTRESS. 09/01/17 11:04 Vital Signs Temperature 96.0 F L 09/01/17 09:08 Pulse Rate 82 09/01/17 09:08 Respiratory Rate 18 09/01/17 09:08 Blood Pressure 121/84 09/01/17 09:08 O2 Sat by Pulse Oximetry (%) Laboratory Tests 08/29/17 08/30/17 08/30/17 23:54 05:08 07:30 WBC 4.5 D RBC 4.26 Hgb 13.7 D Hct 40.0 D MCV 94.0 D MCH 32.1 D MCHC 34.2 RDW 13.0 D Plt Count 240 D MPV 7.6 D Sodium Potassium Chloride Carbon Dioxide Anion Gap BUN Creatinine Creat Clearance w eGFR POC Glucometer 168 Random Glucose Calcium Total Bilirubin AST ALT Alkaline Phosphatase Total Protein Albumin Urine Color Dkyellow Urine Appearance Slcloudy Urine pH 5.0 Ur Specific [place] 1.028 Urine Protein Negative Urine Glucose (UA) Negative Urine Ketones Negative Urine Blood Negative Urine Nitrite Negative Urine Bilirubin Negative Urine Urobilinogen 2.0 Ur Leukocyte Esterase Negative RPR Titer 08/30/17 08/30/17 08/30/17 07:30 07:30 16:23 WBC RBC Hgb Hct MCV MCH MCHC RDW Plt Count MPV Sodium 140 Potassium 3.7 Chloride 104 Carbon Dioxide 27 Anion Gap 9 BUN 21 H D Creatinine 0.8 Creat Clearance w eGFR > 60 POC Glucometer 135 Random Glucose 105 D Calcium 8.3 L Total Bilirubin 0.2 D AST 19 ALT 22 D Alkaline Phosphatase 63 D Total Protein 6.7 Albumin 3.3 L Urine Color Urine Appearance Urine pH Ur Specific [place] Urine Protein Urine Glucose (UA) Urine Ketones Urine Blood Urine Nitrite Urine Bilirubin Urine Urobilinogen Ur Leukocyte Esterase RPR Titer Nonreactive 08/31/17 08/31/17 09/01/17 05:05 18:41 05:15 WBC RBC Hgb Hct MCV MCH MCHC RDW Plt Count MPV Sodium Potassium Chloride Carbon Dioxide Anion Gap BUN Creatinine Creat Clearance w eGFR POC Glucometer 95 163 76 Random Glucose Calcium Total Bilirubin AST ALT Alkaline Phosphatase Total Protein Albumin Urine Color Urine Appearance Urine pH Ur Specific [place] Urine Protein Urine Glucose (UA) Urine Ketones Urine Blood Urine Nitrite Urine Bilirubin Urine Urobilinogen Ur Leukocyte Esterase RPR Titer LABS NOTED. Assessment: 09/01/17 11:07 WITHDRAWAL SYMPTOMS. Plan: CONTINUE DETOX. INCREASE DAILY PO FLUID INTAKE.
--- NOTE | 2017-09-01 11:09 | DS ---
[facility] Detox Discharge Summary Admission Date: 08/29/17 Discharge Date: 09/01/17 - History Present History: Alcohol Dependence, Cocaine Dependence Additional Comments: PATIENT HAS PERSONAL ISSUE TO ATTEND TO AND DOES NOT WISH TO STAY TO COMPLETE DETOX REGIMEN. RISKS OF LEAVING DETOX UNIT AGAINST MEDICAL ADVICE AND PRIOR TO COMPLETION OF DETOX REGIMEN EXPLAINED TO PATIENT. PATIENT ADVISED TO GO IMMEDIATELY TO NEAREST ER SHOULD ANY INTOLERABLE DETOX SYMPTOMS DEVELOP AT ANY TIME. PATIENT LEFT DETOX UNIT IN STABLE MEDICAL CONDITION. Pertinent Past History: Bipolar Disorder, History of Positive PPD, Nicotine Dependence, MMTP, Insomnia, HTN, Arthritis of Knee. - Physical Exam Results Vital Signs: Vital Signs Temperature 96.0 F L 09/01/17 09:08 Pulse Rate 82 09/01/17 09:08 Respiratory Rate 18 09/01/17 09:08 Blood Pressure 121/84 09/01/17 09:08 O2 Sat by Pulse Oximetry (%) Pertinent Admission Physical Exam Findings: WITHDRAWAL SYMPTOMS. Laboratory Tests 08/29/17 08/30/17 08/30/17 23:54 05:08 07:30 WBC 4.5 D RBC 4.26 Hgb 13.7 D Hct 40.0 D MCV 94.0 D MCH 32.1 D MCHC 34.2 RDW 13.0 D Plt Count 240 D MPV 7.6 D Sodium Potassium Chloride Carbon Dioxide Anion Gap BUN Creatinine Creat Clearance w eGFR POC Glucometer 168 Random Glucose Calcium Total Bilirubin AST ALT Alkaline Phosphatase Total Protein Albumin Urine Color Dkyellow Urine Appearance Slcloudy Urine pH 5.0 Ur Specific [place] 1.028 Urine Protein Negative Urine Glucose (UA) Negative Urine Ketones Negative Urine Blood Negative Urine Nitrite Negative Urine Bilirubin Negative Urine Urobilinogen 2.0 Ur Leukocyte Esterase Negative RPR Titer 08/30/17 08/30/17 08/30/17 07:30 07:30 16:23 WBC RBC Hgb Hct MCV MCH MCHC RDW Plt Count MPV Sodium 140 Potassium 3.7 Chloride 104 Carbon Dioxide 27 Anion Gap 9 BUN 21 H D Creatinine 0.8 Creat Clearance w eGFR > 60 POC Glucometer 135 Random Glucose 105 D Calcium 8.3 L Total Bilirubin 0.2 D AST 19 ALT 22 D Alkaline Phosphatase 63 D Total Protein 6.7 Albumin 3.3 L Urine Color Urine Appearance Urine pH Ur Specific [place] Urine Protein Urine Glucose (UA) Urine Ketones Urine Blood Urine Nitrite Urine Bilirubin Urine Urobilinogen Ur Leukocyte Esterase RPR Titer Nonreactive 08/31/17 08/31/17 09/01/17 05:05 18:41 05:15 WBC RBC Hgb Hct MCV MCH MCHC RDW Plt Count MPV Sodium Potassium Chloride Carbon Dioxide Anion Gap BUN Creatinine Creat Clearance w eGFR POC Glucometer 95 163 76 Random Glucose Calcium Total Bilirubin AST ALT Alkaline Phosphatase Total Protein Albumin Urine Color Urine Appearance Urine pH Ur Specific [place] Urine Protein Urine Glucose (UA) Urine Ketones Urine Blood Urine Nitrite Urine Bilirubin Urine Urobilinogen Ur Leukocyte Esterase RPR Titer LABS NOTED. - Treatment Hospital Course: Detoxed Safely - Medication Discharge Medications: Ambulatory Orders NK [No Known Home Medication] 08/29/17 - Diagnosis (1) Dehydration Status: Acute (2) Alcohol dependence with uncomplicated withdrawal Status: Acute (3) Arthritis Status: Chronic (4) Cocaine dependence Status: Acute Qualifiers: Substance use status: uncomplicated Qualified Code(s): F14.20 - Cocaine dependence, uncomplicated (5) Methadone maintenance therapy patient Status: Chronic (6) Nicotine dependence Status: Acute Qualifiers: Nicotine product type: cigarettes Substance use status: in withdrawal Qualified Code(s): F17.213 - Nicotine dependence, cigarettes, with withdrawal (7) HTN (hypertension) Status: Chronic Qualifiers: Hypertension type: essential hypertension Qualified Code(s): I10 - Essential (primary) hypertension (8) PPD positive Status: Chronic (9) Drug-induced mood disorder Status: Acute (10) Insomnia Status: Acute Qualifiers: Insomnia type: unspecified Qualified Code(s): G47.00 - Insomnia, unspecified - AMA Did Patient Leave Against Medical Advice: Yes (PT HAS PERSONAL ISSUE AND DOES NOT WISH TO STAY TO COMPLETE DETOX REGIMEN.)
[2017-09-01] MEDS ORDERED: chlordiazePOXIDE HCL 10 MG CAPSULE PO SCH (23:00)
== END 2017-09-01 09:10 | disposition left against medical advice (07) | DRG 894 ==
LOC: YASAS 17:03 → Y3N 18:52
PROVIDERS: ADMIT Internal Medicine; ATTEND Internal Medicine
PROC: HZ2ZZZZ Detoxification Services for Substance Abuse Treatment (ICD-10-PCS; principal; 2017-08-29)
DX: F11.20 Opioid dependence, uncomplicated (principal); F10.230 Alcohol dependence with withdrawal, uncomplicated; F14.20 Cocaine dependence, uncomplicated; F17.210 Nicotine dependence, cigarettes, uncomplicated; F31.9 Bipolar disorder, unspecified; F19.24 Other psychoactive substance dependence with psychoactive substance-induced mood disorder; I10 Essential (primary) hypertension; G47.00 Insomnia, unspecified; M13.861 Other specified arthritis, right knee; E11.9 Type 2 diabetes mellitus without complications; E86.0 Dehydration; Z91.14 Patient's other noncompliance with medication regimen
CPT/HCPCS: 36415; 71046-TC-FY; 80053; 81003; 82962; 85027; 86593; 93005; 93010

== ENCOUNTER 2017-09-30 10:06 | Inpatient (IN) | payer OTHER ==
[2017-09-30 10:24] VITALS: BMI 30.1
--- NOTE | 2017-09-30 11:51 | HP ---
CIWA Score - CIWA Score Nausea/Vomitin-Mild Nausea/No Vomiting Muscle Tremors: 4-Moderate,w/Arms Extend Anxiety: 4-Mod. Anxious/Guarded Agitation: 1-Slight > Activity Paroxysmal Sweats: 1-Minimal Palms Moist Orientation: 0-Oriented Tacttile Disturbances: 0-None Auditory Disturbances: 0-None Visual Disturbances: 0-None Headache: 2-Mild CIWA-Ar Total Score: 13 Admission ROS BHS - HPI Chief Complaint: It is bad, my drinking, I want to stop. Allergies/Adverse Reactions: Allergies Allergy/AdvReac Type Severity Reaction Status Date / Time No Known Allergies Allergy Verified 09/30/17 12:43 History of Present Illness: 66 yo gentleman here for detox from alcohol. Patient is also on methadone program ([facility], ) where he was dosed today (60mg) and has bottle for tomorrow. He also uses heroin and is on pain management with percocet- he is aware he will not get percocet while here. Denies seizures, sometimes has black outs. Exam Limitations: Clinical Condition - Ebola screening Have you traveled outside of the country in the last 21 days: No (N) Have you had contact with anyone from an Ebola affected area: No Have you been sick,other than usual withdrawal symptoms: No Do you have a fever: No Patient History - Patient Medical History Hx Anemia: No Hx Asthma: No Hx Chronic Obstructive Pulmonary Disease (COPD): No Hx Cancer: No Hx Cardiac Disorders: No Hx Congestive Heart Failure: No Hx Hypertension: Yes (Non complaint with meds.) Hx Hypercholesterolemia: No Hx Pacemaker: No HX Cerebrovascular Accident: No Hx Seizures: No Hx Dementia: No Hx Diabetes: Yes (Not on medication and non compliant with meds.) Hx Gastrointestinal Disorders: No Hx Liver Disease: No Hx Genitourinary Disorders: No Hx Sexually Transmitted Disorders: No Hx Renal Disease (ESRD): No Hx Thyroid Disease: No Hx Human Immunodeficiency Virus (HIV): No ( NEGATIVE 2014) Hx Hepatitis C: No Hx Depression: Yes (Not on medication) Hx Suicide Attempt: No Hx Bipolar Disorder: Yes Hx Schizophrenia: No Other Medical History: back, left knee pain - arthritis - Patient Surgical History Past Surgical History: No Hx Neurologic Surgery: No Hx Cataract Extraction: No Hx Cardiac Surgery: No Hx Lung Surgery: No Hx Breast Surgery: No Hx Breast Biopsy: No Hx Abdominal Surgery: No Hx Appendectomy: No Hx Cholecystectomy: No Hx Genitourinary Surgery: No Hx Section: No Hx Orthopedic Surgery: No Anesthesia Reaction: No - PPD History Previous Implant?: Yes Documented Results: Negative w/o proof Implanted On Prior R Admission?: No Date: 08/30/17 ( CXR done) PPD to be Administered?: No - Reproductive History Patient is a Female of Child Bearing Age (11 -55 yrs old): No (male) - Smoking Cessation Smoking history: Current every day smoker Have you smoked in the past 12 months: Yes Aproximately how many cigarettes per day: 10 Cigars Per Day: 0 Hx Chewing Tobacco Use: No Initiated information on smoking cessation: Yes 'Breaking Loose' booklet given: 09/30/17 (give on floor) - Substance & Tx. History Hx Alcohol Use: Yes Hx Substance Use: Yes Substance Use Type: Alcohol, Cocaine, Heroin Hx Substance Use Treatment: Yes (detox, rehab, methadone program) - Substances Abused alcohol Route: Oral Frequency: Daily Amount used: 8 cans beer; 2 pints vodka Age of first use: 26 Date of Last Use: 09/29/17 cocaine Route: Inhalation Frequency: Daily Amount used: 1 gm Age of first use: 26 Date of Last Use: 09/29/17 heroin Route: Inhalation Frequency: 3-6 times per week Amount used: 4 bags Age of first use: 32 Date of Last Use: 09/30/17 Family Disease History - Family Disease History Family Disease History: Diabetes: Mother ( CANCER OF BREAST), CA: Father (alcohol dependence;LUNG CA ), Mother, Other: Father, Brother ( three - living - healthy), Sister (two - healthy), Daughter (one - adult - healthy) Admission Physical Exam BHS - Vital Signs Vital Signs: Vital Signs - 24 hr 09/30/17 10:22 Temperature 96.1 F L Pulse Rate 71 Respiratory 18 Rate Blood Pressure 149/86 - Physical General Appearance: Yes: Nourished, Appropriately Dressed, Moderate Distress, Anxious HEENTM: Yes: EOMI, Hearing grossly Normal, Normocephalic, Normal Voice Respiratory: Yes: Normal Breath Sounds, No Respiratory Distress Neck: Yes: No masses,lesions,Nodules, Supple Breast: Yes: Breast Exam Deferred Cardiology: Yes: Regular Rhythm, Regular Rate Abdominal: Yes: Flat, Soft Genitourinary: Yes: Frequency Back: Yes: Decreased Range of Motion, Other Musculoskeletal: Yes: Joint Stiffness, Joint swelling, Other (left knee with mild swelling, uses cane to walk) Extremities: Yes: Other (left leg pain - uses cane) Neurological: Yes: Fully Oriented, Alert, Normal Mood/Affect, Normal Response Integumentary: Yes: Normal Color, Dry, Warm Lymphatic: Yes: Within Normal Limits - Diagnostic (1) Alcohol dependence with uncomplicated withdrawal Current Visit: Yes Status: Acute (2) Ambulates with cane Current Visit: Yes Status: Acute (3) Cocaine dependence Current Visit: Yes Status: Acute Qualifiers: Substance use status: uncomplicated Qualified Code(s): F14.20 - Cocaine dependence, uncomplicated (4) Dehydration Current Visit: Yes Status: Acute (5) Nicotine dependence Current Visit: Yes Status: Acute Qualifiers: Nicotine product type: cigarettes Substance use status: in withdrawal Qualified Code(s): F17.213 - Nicotine dependence, cigarettes, with withdrawal (6) Arthritis Current Visit: Yes Status: Chronic (7) Methadone maintenance therapy patient Current Visit: Yes Status: Chronic Comment: verification pending (8) PPD positive Current Visit: Yes Status: Chronic Comment: CXR done 08/30/17 normal Cleared for Admission [facility] - Detox or Rehab [facility] Level of Care: Medically Managed Detox Regimen/Protocol: Librium [facility] Breath Alcohol Content Breath Alcohol Content: 0 Urine Drug Screen - Results Drug Screen Negative: No Urine Drug Screen Results: KEVIN-Cocaine, OPI-Opiates, BZO-Benzodiazepines, MTD- Methadone, TCA-Tricyclic Antidepress, OXY-Oxycodone
[2017-09-30] MEDS ORDERED: MENTHOL/PHENOL 1 EACH UD MM PRN (12:03)
[2017-09-30] MEDS ORDERED: guaiFENesin/D-METHORPHAN HB 10 ML UNIT-DOSE CUPS PO PRN (12:03)
[2017-09-30] MEDS ORDERED: MAG HYDROX/AL HYDROX/SIMETH 30 ML UNIT-DOSE CUP PO PRN (12:03)
[2017-09-30] MEDS ORDERED: LOPERAMIDE HCL 2 MG CAPSULE PO PRN (12:03)
[2017-09-30] MEDS ORDERED: MAGNESIUM HYDROX 2400MG/30ML ORAL SUSPENSION 30 ML CUP PO PRN (12:03)
[2017-09-30] MEDS ORDERED: chlordiazePOXIDE HCL 25 MG CAPSULE PO PRN (12:03)
[2017-09-30] MEDS ORDERED: chlordiazePOXIDE HCL 25 MG CAPSULE PO ONE (12:03)
[2017-09-30] MEDS ORDERED: MAGNESIUM CITRATE 300 ML BOTTLE PO PRN (12:03)
[2017-09-30] MEDS ORDERED: ACETAMINOPHEN 325 MG TABLET (FP) PO PRN (12:03)
[2017-09-30] MEDS ORDERED: hydrOXYzine PAMOATE 25 MG CAPSULE (FP) PO PRN (12:03)
[2017-09-30] MEDS ORDERED: IBUPROFEN 400 MG TABLET (FP) PO PRN (12:03)
[2017-09-30] MEDS ORDERED: P-EPHED 60MG/TRIPROLIDI 2.5MG TABLET PO PRN (12:03)
[2017-09-30] MEDS: metFORMIN HCL 500 MG TABLET (FP) PO SCH (14:11)
[2017-09-30] MEDS: METHYL SALICYLATE/MENTHOL OINT 30 GM TUBE TP SCH ×2 (14:11→23:06)
[2017-09-30] MEDS: NICOTINE 21 MG/24 HOURS TOPICAL PATCH TD SCH (14:12)
[2017-09-30 18:14] LABS: URINE APPEARANCE SLCLOUDY; URINE BILIRUBIN NEGATIVE (<2.0 mg/dL); URINE BLOOD NEGATIVE (NEGATIVE); URINE COLOR AMBER; URINE GLUCOSE (UA) NEGATIVE (NEGATIVE); URINE KETONE NEGATIVE (NEGATIVE); URINE LEUK ESTERASE NEGATIVE (NEGATIVE); URINE NITRITE NEGATIVE (NEGATIVE); URINE PROTEIN NEGATIVE (NEGATIVE)
[2017-09-30] MEDS: chlordiazePOXIDE HCL 25 MG CAPSULE PO SCH ×2 (19:00→23:05)
[2017-09-30] MEDS ORDERED: MELATONIN 5 MG TABLETS PO PRN (22:00)
[2017-09-30] MEDS: THIAMINE HCL 100 MG TABLET (FP) PO SCH (23:05)
[2017-10-01] MEDS: chlordiazePOXIDE HCL 25 MG CAPSULE PO SCH ×4 (06:04→22:06)
[2017-10-01] MEDS ORDERED: METHADONE HCL 40 MG DISPERSABLE TABLET ONE (06:25)
[2017-10-01] MEDS ORDERED: METHADONE HCL 10 MG TABLET ONE (06:25)
[2017-10-01] MEDS: METHADONE 40 MG, METHADONE 20 MG PO SCH (06:26)
--- NOTE | 2017-10-01 07:56 | CONSULT ---
[facility] Psychiatric Consult - Data Date of interview: 10/01/17 Admission source: Self-referred Identifying data: Mr Norton is a 66 years old male, father of a 34 years old daughter, unemployed on SSI, domiciled seeking detox treatment for alcohol, opioid and cocaine Substance Abuse History: Reports history of alcohol, heroin and cocaine use. Refer to addiction counselor's note for further information Medical History: Significant for hypertension, diabetes mellitus, positive PPD status and arthritis of left knee and back. Patient is on methadone 60 mg/day. Smokes 10 cigarettes daily. Psychiatric History: Patient reports being diagnosed with MDD 12 years ago. Denies history of previous psychiatric hospitaliation or suicidal attempt. However, reports he currently receives psychiatric outpatient services at a clinic located on [facility] in the [place] and he is prescribed Zoloft 50 mg po daily, Elavil 10 mg po HS nd Ambien 10 mg po HS. Pharmacy claims show script for Zoloft 50and Ambien 10 mg filled on 08/21/17 and Elavil 100 mg , Prozac 20 on 03/23/17 and Zyprexa 10 on 03/21/17. Denies previous psychiatric hospitalization or suicidal attempt. At present, reports feeling depressed and sleeping poorly Physical/Sexual Abuse/Trauma History: Patient denies history of emotional. physical or sexual abuse as well as DV relationship Additional Comment: Denies criminal history Mental Status Exam - Mental Status Exam Alert and Oriented to: Time, Place, Person Cognitive Function: Fair Patient Appearance: Disheveled Mood: Depressed (mild) Affect: Normal Range Patient Behavior: Cooperative Speech Pattern: Clear Voice Loudness: Normal Thought Process: Intact, Goal Oriented Thought Disorder: Not Present Hallucinations: Denies Suicidal Ideation: Denies Homicidal Ideation: Denies Insight/Judgement: Poor Sleep: Poorly Appetite: Good Muscle strength/Tone: Normal Gait/Station: Normal Psychiatric Findings - Problem List ([place] 1, 2,3) (1) MDD (major depressive disorder), recurrent, severe, with psychosis Current Visit: Yes Status: Chronic (2) Substance induced mood disorder Current Visit: Yes Status: Acute (3) Substance-induced sleep disorder Current Visit: Yes Status: Acute (4) Alcohol dependence with uncomplicated withdrawal Current Visit: Yes Status: Acute (5) Cocaine dependence Current Visit: Yes Status: Acute Qualifiers: Substance use status: uncomplicated Qualified Code(s): F14.20 - Cocaine dependence, uncomplicated (6) Opioid dependence on agonist therapy Current Visit: No Status: Chronic (7) Nicotine dependence Current Visit: Yes Status: Chronic Qualifiers: Nicotine product type: cigarettes Substance use status: in withdrawal Qualified Code(s): F17.213 - Nicotine dependence, cigarettes, with withdrawal (8) Arthritis Current Visit: Yes Status: Chronic (9) PPD positive Current Visit: Yes Status: Chronic Comment: CXR done 08/30/17 normal (10) HTN (hypertension) Current Visit: No Status: Chronic Qualifiers: Hypertension type: essential hypertension Qualified Code(s): I10 - Essential (primary) hypertension Comment: PATIENT REPORTS TAKING HCTZ 12.5 MG DAILY, DENIES TAKING LISINOPRIL (11) Diabetes mellitus Current Visit: Yes Status: Chronic - Initial Treatment Plan Initial Treatment Plan: 1) Continue Zoloft 50 mg po daily, Amitryptiline 100 mg po HS and Ambien 10 mg po HS prn for insomnia. 2) Continue inpatient detoxification
[2017-10-01] MEDS ORDERED: METHADONE HCL 40 MG DISPERSABLE TABLET PO SCH (10:00)
[2017-10-01] MEDS: metFORMIN HCL 500 MG TABLET (FP) PO SCH (10:14)
[2017-10-01] MEDS: PRENATAL VITAMINS W/ FOLIC ACID TABLET (FP) PO SCH (10:14)
[2017-10-01] MEDS: METHYL SALICYLATE/MENTHOL OINT 30 GM TUBE TP SCH ×2 (10:14→22:06)
[2017-10-01] MEDS: NICOTINE 21 MG/24 HOURS TOPICAL PATCH TD SCH (10:14)
[2017-10-01] MEDS ORDERED: ZOLPIDEM TARTRATE 5 MG TABLET PO PRN (10:18)
--- NOTE | 2017-10-01 10:47 | EKG ---
Test Reason : Blood Pressure : / mmHG Vent. Rate : 068 BPM Atrial Rate : 068 BPM P-R Int : 116 ms QRS Dur : 110 ms QT Int : 440 ms P-R-T Axes : 044 -21 -01 degrees QTc Int : 467 ms NORMAL SINUS RHYTHM VOLTAGE CRITERIA FOR LEFT VENTRICULAR HYPERTROPHY CANNOT RULE OUT SEPTAL INFARCT , AGE UNDETERMINED ABNORMAL ECG WHEN COMPARED WITH ECG OF 29-AUG-2017 22:09, NO SIGNIFICANT CHANGE WAS FOUND Confirmed by MENDY CRAMER, DI ([id number]) on 10/01/2017 10:47:34 AM Referred By: Confirmed By:DI BROOKE MD
[2017-10-01] MEDS: SERTRALINE HCL 50 MG TABLET (FP) PO SCH (10:56)
[2017-10-01 11:23] LABS: HEMATOCRIT 34.9 % (35.4-49); HEMOGLOBIN 11.8 GM/dL (11.7-16.9); MCH 28.1 pg (25.7-33.7); MCHC 33.9 g/dl (32.0-35.9); PLATELET COUNT 270 K/MM3 (134-434); RBC 4.21 M/mm3 (4.00-5.60); RDW 16.6 % (11.9-15.9); WHITE BLOOD COUNT 6.9 K/mm3 (4.0-10.0)
[2017-10-01 11:30] LABS: ALBUMIN 3.4 g/dl (3.4-5.0); ANION GAP 4 (8-16); BLOOD UREA NITROGEN 17 mg/dL (7-18); CALCIUM 8.3 mg/dL (8.5-10.1); CHLORIDE 106 mmol/L (98-107); CO2 32 mmol/L (21-32); GLUCOSE,RANDOM 87 mg/dL (74-106); POTASSIUM 3.4 mmol/L (3.5-5.1); SODIUM 142 mmol/L (136-145)
[2017-10-01 11:36] LABS: ALK PHOS 84 U/L (45-117); BILIRUBIN,TOTAL 0.2 mg/dL (0.2-1.0); CREATININE 0.8 mg/dL (0.7-1.3); SGOT/AST 16 U/L (15-37); SGPT/ALT 15 U/L (12-78); TOT PROT 7.1 g/dl (6.4-8.2)
--- NOTE | 2017-10-01 16:43 | PN ---
[facility] CIWA - CIWA Score Nausea/Vomitin-No Nausea/No Vomiting Muscle Tremors: None Anxiety: 4-Mod. Anxious/Guarded Agitation: 3 Paroxysmal Sweats: 3 Orientation: 0-Oriented Tacttile Disturbances: 2-Mild Itch/Numbness/Burn Auditory Disturbances: 2-Mild Harshness/Frighten Visual Disturbances: 2-Mild Sensitivity Headache: 0-None Present CIWA-Ar Total Score: 16 BHS Progress Note (SOAP) Subjective: Sweating, Fatigue, Anxious. Objective: PATIENT A & O X 3, OBSERVED AMBULATING ON UNIT. NO ACUTE DISTRESS. 10/01/17 16:39 Vital Signs Temperature 96.8 F L 10/01/17 10:33 Pulse Rate 74 10/01/17 10:33 Respiratory Rate 20 10/01/17 10:33 Blood Pressure 108/80 10/01/17 10:33 O2 Sat by Pulse Oximetry (%) Laboratory Tests 09/30/17 09/30/17 10/01/17 13:04 16:00 06:06 WBC RBC Hgb Hct MCV MCH MCHC RDW Plt Count MPV Sodium Potassium Chloride Carbon Dioxide Anion Gap BUN Creatinine Creat Clearance w eGFR POC Glucometer 133 89 Random Glucose Calcium Total Bilirubin AST ALT Alkaline Phosphatase Total Protein Albumin Urine Color Jeanne Urine Appearance Slcloudy Urine pH 6.0 Ur Specific [place] 1.024 Urine Protein Negative Urine Glucose (UA) Negative Urine Ketones Negative Urine Blood Negative Urine Nitrite Negative Urine Bilirubin Negative Urine Urobilinogen 2.0 Ur Leukocyte Esterase Negative RPR Titer 10/01/17 10/01/17 10/01/17 08:00 08:00 08:00 WBC 6.9 D RBC 4.21 Hgb 11.8 D Hct 34.9 L MCV 83.0 D MCH 28.1 D MCHC 33.9 RDW 16.6 H D Plt Count 270 MPV 9.0 D Sodium 142 Potassium 3.4 L Chloride 106 Carbon Dioxide 32 Anion Gap 4 L BUN 17 Creatinine 0.8 Creat Clearance w eGFR > 60 POC Glucometer Random Glucose 87 Calcium 8.3 L Total Bilirubin 0.2 AST 16 ALT 15 D Alkaline Phosphatase 84 D Total Protein 7.1 Albumin 3.4 Urine Color Urine Appearance Urine pH Ur Specific [place] Urine Protein Urine Glucose (UA) Urine Ketones Urine Blood Urine Nitrite Urine Bilirubin Urine Urobilinogen Ur Leukocyte Esterase RPR Titer Nonreactive LABS NOTED. Assessment: 10/01/17 16:39 WITHDRAWAL SYMPTOMS. HYPOKALEMIA. 10/01/17 16:41 Plan: CONTINUE DETOX. K-DUR, 20 MEQ PO BID. INCREASE DAILY PO FLUID INTAKE. PATIENT REPORTS THAT HE HAS PERSONAL ISSUE TO ATTEND TO ON 10/04/2017. AT PATIENT'S REQUEST, DETOX MEDICATION REGIMEN (LIBRIUM) MODIFIED SO THAT PATIENT MAY BE DISCHARGED ON 10/03/2017.
[2017-10-01] MEDS: POTASSIUM CHLORIDE TABS 20 MEQ TABLET.ER (FP) PO SCH (18:14)
[2017-10-01] MEDS ORDERED: AMITRIPTYLINE HCL 50 MG TABLET PO SCH (22:00)
[2017-10-01] MEDS: THIAMINE HCL 100 MG TABLET (FP) PO SCH (22:06)
[2017-10-01] MEDS ORDERED: AMITRIPTYLINE HCL 25 MG TABLET (FP) PO SCH (23:45)
[2017-10-02] MEDS: chlordiazePOXIDE 5 MG CAPSULE PO SCH ×2 (05:21→10:08)
[2017-10-02] MEDS ORDERED: METHADONE HCL 40 MG DISPERSABLE TABLET ONE (10:03)
[2017-10-02] MEDS ORDERED: METHADONE HCL 10 MG TABLET ONE (10:03)
[2017-10-02] MEDS: METHYL SALICYLATE/MENTHOL OINT 30 GM TUBE TP SCH ×2 (10:07→22:39)
[2017-10-02] MEDS: METHADONE 40 MG, METHADONE 20 MG PO SCH (10:07)
[2017-10-02] MEDS: POTASSIUM CHLORIDE TABS 20 MEQ TABLET.ER (FP) PO SCH ×2 (10:08→17:27)
[2017-10-02] MEDS: SERTRALINE HCL 50 MG TABLET (FP) PO SCH (10:08)
[2017-10-02] MEDS: PRENATAL VITAMINS W/ FOLIC ACID TABLET (FP) PO SCH (10:08)
[2017-10-02] MEDS: metFORMIN HCL 500 MG TABLET (FP) PO SCH (10:08)
--- NOTE | 2017-10-02 10:13 | PN ---
[facility] CIWA - CIWA Score Nausea/Vomitin Muscle Tremors: 3 Anxiety: 3 Agitation: 3 Paroxysmal Sweats: 2 Orientation: 0-Oriented Tacttile Disturbances: 0-None Auditory Disturbances: 0-None Visual Disturbances: 0-None Headache: 0-None Present CIWA-Ar Total Score: 14 [facility] COWS - Scale Resting Pulse: 0= VT 80 or Below Sweatin=Flushed/Facial Moisture Restless Observation: 0= Sits Still Pupil Size: 0= Normal to Room Light Bone or Joint Aches: 1= Mild Discomfort Runny Nose/ Eye Tearin= Nasal Congestion GI Upset > 30mins: 2= Nausea/Diarrhea Tremor Observation of Outstretched Hands: 2= Slight Tremor Visible Yawning Observation: 1= 1-2x During Session Anxiety or Irritability: 1=Feels Anxious/Irritable Goose Flesh Skin: 0=Smooth Skin COWS Score: 10 [facility] Progress Note (SOAP) Subjective: sleep disturbance shakes sweats Objective: 10/02/17 10:11 On bed, sleepy, A & O x 3 Vital Signs Temperature 96.7 F L 10/02/17 09:04 Pulse Rate 62 10/02/17 09:04 Respiratory Rate 18 10/02/17 09:04 Blood Pressure 140/82 10/02/17 09:04 O2 Sat by Pulse Oximetry (%) Assessment: 10/02/17 10:12 withdrawal sx Plan: continue detox as adjusted Continue potassium Continue increased hydration
[2017-10-02] MEDS ORDERED: AMITRIPTYLINE HCL 100 MG TABLET PO SCH (13:09)
[2017-10-02] MEDS: NICOTINE 21 MG/24 HOURS TOPICAL PATCH TD SCH (13:50)
[2017-10-02] MEDS ORDERED: chlordiazePOXIDE 5 MG CAPSULE PO SCH (17:00)
[2017-10-02] MEDS: chlordiazePOXIDE HCL 10 MG CAPSULE PO SCH ×2 (17:27→22:35)
[2017-10-02] MEDS ORDERED: AMITRIPTYLINE HCL 25 MG TABLET (FP) PO SCH (22:00)
[2017-10-02] MEDS: THIAMINE HCL 100 MG TABLET (FP) PO SCH (22:35)
[2017-10-03] MEDS ORDERED: METHADONE HCL 40 MG DISPERSABLE TABLET ONE (04:24)
[2017-10-03] MEDS ORDERED: METHADONE HCL 10 MG TABLET ONE (04:24)
[2017-10-03] MEDS: METHADONE 40 MG, METHADONE 20 MG PO SCH (05:41)
[2017-10-03] MEDS ORDERED: METHADONE 40 MG, METHADONE 20 MG PO SCH (06:00)
[2017-10-03] MEDS ORDERED: METHADONE HCL 40 MG DISPERSABLE TABLET PO SCH (06:00)
[2017-10-03 09:26] VITALS: BP 122/80; PULSE 82; TEMP 98.9
[2017-10-03] MEDS: PRENATAL VITAMINS W/ FOLIC ACID TABLET (FP) PO SCH (10:14)
[2017-10-03] MEDS: POTASSIUM CHLORIDE TABS 20 MEQ TABLET.ER (FP) PO SCH (10:14)
[2017-10-03] MEDS: SERTRALINE HCL 50 MG TABLET (FP) PO SCH (10:14)
[2017-10-03] MEDS: METHYL SALICYLATE/MENTHOL OINT 30 GM TUBE TP SCH (10:14)
[2017-10-03] MEDS: NICOTINE 21 MG/24 HOURS TOPICAL PATCH TD SCH (10:15)
[2017-10-03] MEDS: metFORMIN HCL 500 MG TABLET (FP) PO SCH (10:15)
--- NOTE | 2017-10-03 13:58 | PN ---
S Progress Note (SOAP) Subjective: Patient reports mild fatigue and sweating, he denies any other current detox symptoms. Objective: PATIENT A & O X 3, OBSERVED AMBULATING ON UNIT. NO ACUTE DISTRESS. 10/03/17 13:57 Vital Signs Temperature 98.9 F 10/03/17 09:25 Pulse Rate 82 10/03/17 09:25 Respiratory Rate 18 10/03/17 09:25 Blood Pressure 122/80 10/03/17 09:25 O2 Sat by Pulse Oximetry (%) Laboratory Tests 09/30/17 09/30/17 10/01/17 13:04 16:00 06:06 WBC RBC Hgb Hct MCV MCH MCHC RDW Plt Count MPV Sodium Potassium Chloride Carbon Dioxide Anion Gap BUN Creatinine Creat Clearance w eGFR POC Glucometer 133 89 Random Glucose Calcium Total Bilirubin AST ALT Alkaline Phosphatase Total Protein Albumin Urine Color Jeanne Urine Appearance Slcloudy Urine pH 6.0 Ur Specific [place] 1.024 Urine Protein Negative Urine Glucose (UA) Negative Urine Ketones Negative Urine Blood Negative Urine Nitrite Negative Urine Bilirubin Negative Urine Urobilinogen 2.0 Ur Leukocyte Esterase Negative RPR Titer 10/01/17 10/01/17 10/01/17 08:00 08:00 08:00 WBC 6.9 D RBC 4.21 Hgb 11.8 D Hct 34.9 L MCV 83.0 D MCH 28.1 D MCHC 33.9 RDW 16.6 H D Plt Count 270 MPV 9.0 D Sodium 142 Potassium 3.4 L Chloride 106 Carbon Dioxide 32 Anion Gap 4 L BUN 17 Creatinine 0.8 Creat Clearance w eGFR > 60 POC Glucometer Random Glucose 87 Calcium 8.3 L Total Bilirubin 0.2 AST 16 ALT 15 D Alkaline Phosphatase 84 D Total Protein 7.1 Albumin 3.4 Urine Color Urine Appearance Urine pH Ur Specific [place] Urine Protein Urine Glucose (UA) Urine Ketones Urine Blood Urine Nitrite Urine Bilirubin Urine Urobilinogen Ur Leukocyte Esterase RPR Titer Nonreactive 10/02/17 10/03/17 05:21 05:43 WBC RBC Hgb Hct MCV MCH MCHC RDW Plt Count MPV Sodium Potassium Chloride Carbon Dioxide Anion Gap BUN Creatinine Creat Clearance w eGFR POC Glucometer 77 85 Random Glucose Calcium Total Bilirubin AST ALT Alkaline Phosphatase Total Protein Albumin Urine Color Urine Appearance Urine pH Ur Specific [place] Urine Protein Urine Glucose (UA) Urine Ketones Urine Blood Urine Nitrite Urine Bilirubin Urine Urobilinogen Ur Leukocyte Esterase RPR Titer LABS NOTED. Assessment: 10/03/17 13:57 COMPLETION OF DETOX REGIMEN. 10/03/17 13:58 Plan: PATIENT SCHEDULED FOR DISCHARGE FROM DETOX UNIT TODAY.
--- NOTE | 2017-10-03 14:02 | DS ---
[facility] Detox Discharge Summary Admission Date: 09/30/17 Discharge Date: 10/03/17 - History Present History: Alcohol Dependence, Cocaine Dependence Additional Comments: PATIENT GOING TO [facility] ([facility] FOR AFTERCARE. PATIENT WAS DISCHARGED FROM DETOX UNIT IN STABLE MEDICAL CONDITION. Pertinent Past History: HTN, DM, Insomnia, Nicotine Dependence, Dehydration, MMTP, Ambulates with cane, History of Positive PPD, Arthritis, Left Knee Pain, Back Pain. - Physical Exam Results Vital Signs: Vital Signs Temperature 98.9 F 10/03/17 09:25 Pulse Rate 82 10/03/17 09:25 Respiratory Rate 18 10/03/17 09:25 Blood Pressure 122/80 10/03/17 09:25 O2 Sat by Pulse Oximetry (%) Pertinent Admission Physical Exam Findings: WITHDRAWAL SYMPTOMS. Laboratory Tests 09/30/17 09/30/17 10/01/17 13:04 16:00 06:06 WBC RBC Hgb Hct MCV MCH MCHC RDW Plt Count MPV Sodium Potassium Chloride Carbon Dioxide Anion Gap BUN Creatinine Creat Clearance w eGFR POC Glucometer 133 89 Random Glucose Calcium Total Bilirubin AST ALT Alkaline Phosphatase Total Protein Albumin Urine Color Jeanne Urine Appearance Slcloudy Urine pH 6.0 Ur Specific [place] 1.024 Urine Protein Negative Urine Glucose (UA) Negative Urine Ketones Negative Urine Blood Negative Urine Nitrite Negative Urine Bilirubin Negative Urine Urobilinogen 2.0 Ur Leukocyte Esterase Negative RPR Titer 10/01/17 10/01/17 10/01/17 08:00 08:00 08:00 WBC 6.9 D RBC 4.21 Hgb 11.8 D Hct 34.9 L MCV 83.0 D MCH 28.1 D MCHC 33.9 RDW 16.6 H D Plt Count 270 MPV 9.0 D Sodium 142 Potassium 3.4 L Chloride 106 Carbon Dioxide 32 Anion Gap 4 L BUN 17 Creatinine 0.8 Creat Clearance w eGFR > 60 POC Glucometer Random Glucose 87 Calcium 8.3 L Total Bilirubin 0.2 AST 16 ALT 15 D Alkaline Phosphatase 84 D Total Protein 7.1 Albumin 3.4 Urine Color Urine Appearance Urine pH Ur Specific [place] Urine Protein Urine Glucose (UA) Urine Ketones Urine Blood Urine Nitrite Urine Bilirubin Urine Urobilinogen Ur Leukocyte Esterase RPR Titer Nonreactive 10/02/17 10/03/17 05:21 05:43 WBC RBC Hgb Hct MCV MCH MCHC RDW Plt Count MPV Sodium Potassium Chloride Carbon Dioxide Anion Gap BUN Creatinine Creat Clearance w eGFR POC Glucometer 77 85 Random Glucose Calcium Total Bilirubin AST ALT Alkaline Phosphatase Total Protein Albumin Urine Color Urine Appearance Urine pH Ur Specific [place] Urine Protein Urine Glucose (UA) Urine Ketones Urine Blood Urine Nitrite Urine Bilirubin Urine Urobilinogen Ur Leukocyte Esterase RPR Titer LABS NOTED. - Treatment Hospital Course: Detox Protocol Followed, Detoxed Safely, Responded well, Discharged Condition Good Patient has Accepted a Rehab Referral to: PATIENT GOING TO [facility] ([email or web address] FOR AFTERCARE. - Medication Discharge Medications: Ambulatory Orders Metformin HCl 500 mg PO DAILY 09/30/17 Amitriptyline HCl [Elavil -] 100 mg PO HS #30 tablet 10/01/17 Sertraline HCl [Zoloft -] 50 mg PO DAILY #30 tablet 10/01/17 - Diagnosis (1) Alcohol dependence with uncomplicated withdrawal Status: Acute (2) Ambulates with cane Status: Chronic (3) Cocaine dependence Status: Chronic Qualifiers: Substance use status: uncomplicated Qualified Code(s): F14.20 - Cocaine dependence, uncomplicated (4) Methadone maintenance therapy patient Status: Chronic (5) Nicotine dependence Status: Chronic Qualifiers: Nicotine product type: cigarettes Substance use status: in withdrawal Qualified Code(s): F17.213 - Nicotine dependence, cigarettes, with withdrawal (6) Dehydration Status: Acute (7) Arthritis Status: Chronic (8) PPD positive Status: Chronic (9) Substance induced mood disorder Status: Acute (10) Substance-induced sleep disorder Status: Acute (11) Diabetes mellitus Status: Chronic Qualifiers: Diabetes mellitus type: type 2 Diabetes mellitus bed bug exterminator insulin use: without fdc use Diabetes mellitus complication status: without complication Qualified Code(s): E11.9 - Type 2 diabetes mellitus without complications (12) HTN (hypertension) Status: Chronic Qualifiers: Hypertension type: essential hypertension Qualified Code(s): I10 - Essential (primary) hypertension (13) MDD (major depressive disorder), recurrent, severe, with psychosis Status: Chronic (14) Opioid dependence on agonist therapy Status: Chronic - AMA Did Patient Leave Against Medical Advice: No
[2017-10-03] MEDS ORDERED: chlordiazePOXIDE HCL 10 MG CAPSULE PO SCH (17:00)
== END 2017-10-03 10:22 | disposition home or self-care (01) | DRG 897 ==
LOC: YASAS 10:06 → Y3N 13:10
PROVIDERS: ADMIT Internal Medicine; ATTEND Internal Medicine
PROC: HZ2ZZZZ Detoxification Services for Substance Abuse Treatment (ICD-10-PCS; principal; 2017-09-30)
DX: F10.230 Alcohol dependence with withdrawal, uncomplicated (principal); F11.20 Opioid dependence, uncomplicated; F14.20 Cocaine dependence, uncomplicated; F19.282 Other psychoactive substance dependence with psychoactive substance-induced sleep disorder; F33.3 Major depressive disorder, recurrent, severe with psychotic symptoms; F17.213 Nicotine dependence, cigarettes, with withdrawal; F19.24 Other psychoactive substance dependence with psychoactive substance-induced mood disorder; E87.6 Hypokalemia; I10 Essential (primary) hypertension; E86.0 Dehydration; M19.90 Unspecified osteoarthritis, unspecified site; R76.11 Nonspecific reaction to tuberculin skin test without active tuberculosis; E11.9 Type 2 diabetes mellitus without complications; R26.2 Difficulty in walking, not elsewhere classified; Z99.89 Dependence on other enabling machines and devices; Z91.14 Patient's other noncompliance with medication regimen
CPT/HCPCS: 36415; 80053; 81003; 82962; 85027; 86593; 93005; 93010

== ENCOUNTER 2017-10-28 08:50 | Inpatient (IN) | payer OTHER ==
[2017-10-28 10:25] VITALS: BMI 26.6
--- NOTE | 2017-10-28 11:06 | HP ---
CIWA Score - CIWA Score Nausea/Vomitin-Mild Nausea/No Vomiting Muscle Tremors: 4-Moderate,w/Arms Extend Anxiety: 4-Mod. Anxious/Guarded Agitation: 1-Slight > Activity Paroxysmal Sweats: 1-Minimal Palms Moist Orientation: 1-Uncertain about Date Tacttile Disturbances: 1-Very Mild Itch/Numbness Auditory Disturbances: 1-Very Mild Visual Disturbances: 1-Very Mild Sensitivity Headache: 1-Very Mild CIWA-Ar Total Score: 16 Admission ROS BHS - HPI Chief Complaint: I drink too much, I need to not drink Allergies/Adverse Reactions: Allergies Allergy/AdvReac Type Severity Reaction Status Date / Time No Known Allergies Allergy Verified 10/28/17 10:34 History of Present Illness: 66 yo gentleman here for detox from alcohol. Patient in [facility] methadone program - was dosed today and brought in bottles. Denies seizures, does have black outs. Also using heroin 'sometimes'. Note benzos in urine tox but he denies using - states it must be in the heroin. This is one of multiple admissions for treatment. Exam Limitations: Clinical Condition - Ebola screening Have you traveled outside of the country in the last 21 days: No Have you had contact with anyone from an Ebola affected area: No Have you been sick,other than usual withdrawal symptoms: No - Review of Systems Constitutional: Chills, Loss of Appetite, Changes in sleep, Weakness EENT: reports: Nose Congestion Respiratory: reports: No Symptoms reported Cardiac: reports: No Symptoms Reported GI: reports: Nausea, Indigestion, Abdominal cramping : reports: Frequency Musculoskeletal: reports: Back Pain, Joint Pain, Muscle Pain, Joint Stiffness Integumentary: reports: No Symptoms Reported Neuro: reports: Headache Endocrine: reports: No Symptoms Reported Hematology: reports: No Symptoms Reported Psychiatric: reports: Judgement Intact, Mood/Affect Appropiate, Anxious Other Systems: Reviewed and Negative Patient History - Patient Medical History Hx Anemia: No Hx Asthma: No Hx Chronic Obstructive Pulmonary Disease (COPD): No Hx Cancer: No Hx Cardiac Disorders: No Hx Congestive Heart Failure: No Hx Hypertension: Yes Hx Hypercholesterolemia: No Hx Pacemaker: No HX Cerebrovascular Accident: No Hx Seizures: No Hx Dementia: No Hx Diabetes: Yes Hx Gastrointestinal Disorders: No Hx Liver Disease: No Hx Genitourinary Disorders: No Hx Sexually Transmitted Disorders: No Hx Renal Disease (ESRD): No Hx Thyroid Disease: No Hx Human Immunodeficiency Virus (HIV): No ( NEGATIVE 2014) Hx Hepatitis C: No Hx Depression: Yes Hx Suicide Attempt: No Hx Bipolar Disorder: Yes Hx Schizophrenia: No Other Medical History: knee arthritis - Patient Surgical History Past Surgical History: No Hx Neurologic Surgery: No Hx Cataract Extraction: No Hx Cardiac Surgery: No Hx Lung Surgery: No Hx Breast Surgery: No Hx Breast Biopsy: No Hx Abdominal Surgery: No Hx Appendectomy: No Hx Cholecystectomy: No Hx Genitourinary Surgery: No Hx Section: No Hx Orthopedic Surgery: No Anesthesia Reaction: No - PPD History Previous Implant?: Yes Documented Results: Positive w/o proof Implanted On Prior [facility] Admission?: Yes Date: 08/30/17 Results: c-x-ray (neg.) PPD to be Administered?: No - Reproductive History Patient is a Female of Child Bearing Age (11 -55 yrs old): No (male) - Smoking Cessation Smoking history: Current every day smoker Have you smoked in the past 12 months: Yes Aproximately how many cigarettes per day: 10 Cigars Per Day: 0 Hx Chewing Tobacco Use: No Initiated information on smoking cessation: Yes 'Breaking Loose' booklet given: 10/28/17 (give on floor) - Substance & Tx. History Hx Alcohol Use: Yes Hx Substance Use: Yes Substance Use Type: Alcohol, Cocaine, Heroin Hx Substance Use Treatment: Yes (detox, rehab, methadone) - Substances Abused Alcohol Route: Oral Amount used: 1 P[place], 2 6 PACK [employer]ERS Age of first use: 22 Date of Last Use: 10/28/17 Cocaine Route: Inhalation Frequency: Daily Amount used: $40 DOLLARS Age of first use: 22 Date of Last Use: 10/28/17 Heroin Route: Inhalation Frequency: Daily Amount used: $20 Age of first use: 22 Date of Last Use: 10/28/17 Family Disease History - Family Disease History Family Disease History: Diabetes: Mother ( CANCER OF BREAST), CA: Father (alcohol dependence;LUNG CA ), Mother, Other: Father, Brother ( three - living - healthy), Sister (two - healthy), Daughter (one - adult - healthy) Admission Physical Exam BHS - Vital Signs Vital Signs: Vital Signs - 24 hr 10/28/17 10:18 Temperature 98.6 F Pulse Rate 90 Respiratory 20 Rate Blood Pressure 131/81 - Physical General Appearance: Yes: Nourished, Appropriately Dressed, Moderate Distress, Anxious HEENTM: Yes: EOMI, Hearing grossly Normal, Normocephalic, Normal Voice, Pharynx Normal, Nasal Congestion Respiratory: Yes: Normal Breath Sounds, No Respiratory Distress Neck: Yes: No masses,lesions,Nodules, Supple Breast: Yes: Breast Exam Deferred Cardiology: Yes: Regular Rhythm, Regular Rate Abdominal: Yes: Flat, Soft Genitourinary: Yes: Frequency Back: Yes: Decreased Range of Motion, Other (foreward posture) Musculoskeletal: Yes: Joint Stiffness, Other (uses cane to walk) Extremities: Yes: Normal Inspection Neurological: Yes: Alert, Normal Mood/Affect, Normal Response Integumentary: Yes: Normal Color, Dry, Warm Lymphatic: Yes: Within Normal Limits - Addiitonal Findings: DVG=[id number] - Diagnostic (1) Alcohol dependence with uncomplicated withdrawal Current Visit: Yes Status: Chronic (2) Heroin dependence Current Visit: Yes Status: Chronic Comment: also on methadone program (3) Cocaine dependence Current Visit: Yes Status: Chronic Qualifiers: Substance use status: uncomplicated Qualified Code(s): F14.20 - Cocaine dependence, uncomplicated (4) Osteoarthritis of both knees Current Visit: Yes Status: Acute Qualifiers: Osteoarthritis type: primary Qualified Code(s): M17.0 - Bilateral primary osteoarthritis of knee (5) Ambulates with cane Current Visit: Yes Status: Chronic (6) Diabetes mellitus Current Visit: Yes Status: Chronic Qualifiers: Diabetes mellitus type: type 2 Diabetes mellitus buttermilk drier operator insulin use: without buttermilk drier operator use Diabetes mellitus complication status: without complication Qualified Code(s): E11.9 - Type 2 diabetes mellitus without complications (7) HTN (hypertension) Current Visit: Yes Status: Chronic Qualifiers: Hypertension type: essential hypertension Qualified Code(s): I10 - Essential (primary) hypertension Comment: PATIENT REPORTS TAKING HCTZ 12.5 MG DAILY, DENIES TAKING LISINOPRIL (8) Methadone maintenance therapy patient Current Visit: Yes Status: Chronic Comment: verification pending (9) Nicotine dependence Current Visit: No Status: Chronic Qualifiers: Nicotine product type: cigarettes Substance use status: in withdrawal Qualified Code(s): F17.213 - Nicotine dependence, cigarettes, with withdrawal Cleared for Admission S - Detox or Rehab S Level of Care: Medically Managed [facility] Breath Alcohol Content Breath Alcohol Content: 0 Urine Drug Screen - Results Drug Screen Negative: No Urine Drug Screen Results: KEVIN-Cocaine, OPI-Opiates, BZO-Benzodiazepines, MTD- Methadone, TCA-Tricyclic Antidepress
[2017-10-28] MEDS ORDERED: chlordiazePOXIDE HCL 25 MG CAPSULE PO PRN (11:18)
[2017-10-28] MEDS ORDERED: guaiFENesin/D-METHORPHAN HB 10 ML UNIT-DOSE CUPS PO PRN (11:18)
[2017-10-28] MEDS ORDERED: IBUPROFEN 400 MG TABLET (FP) PO PRN (11:18)
[2017-10-28] MEDS ORDERED: MENTHOL/PHENOL 1 EACH UD MM PRN (11:18)
[2017-10-28] MEDS ORDERED: ACETAMINOPHEN 325 MG TABLET (FP) PO PRN (11:18)
[2017-10-28] MEDS ORDERED: MAG HYDROX/AL HYDROX/SIMETH 30 ML UNIT-DOSE CUP PO PRN (11:18)
[2017-10-28] MEDS ORDERED: MAGNESIUM HYDROX 2400MG/30ML ORAL SUSPENSION 30 ML CUP PO PRN (11:18)
[2017-10-28] MEDS ORDERED: LOPERAMIDE HCL 2 MG CAPSULE PO PRN (11:18)
[2017-10-28] MEDS ORDERED: MAGNESIUM CITRATE 300 ML BOTTLE PO PRN (11:18)
[2017-10-28] MEDS ORDERED: hydrOXYzine PAMOATE 25 MG CAPSULE (FP) PO PRN (11:18)
[2017-10-28] MEDS ORDERED: P-EPHED 60MG/TRIPROLIDI 2.5MG TABLET PO PRN (11:18)
[2017-10-28] MEDS ORDERED: chlordiazePOXIDE HCL 25 MG CAPSULE PO ONE (12:30)
[2017-10-28] MEDS: HYDROCHLOROTHIAZIDE 12.5 MG CAPSULE (FP) PO SCH (13:34)
[2017-10-28] MEDS: NICOTINE 14 MG/24 HOURS TOPICAL PATCH TD SCH (13:34)
[2017-10-28] MEDS: chlordiazePOXIDE HCL 25 MG CAPSULE PO SCH ×2 (18:45→23:11)
[2017-10-28] MEDS ORDERED: MELATONIN 5 MG TABLETS PO PRN (22:00)
[2017-10-28 23:07] LABS: URINE APPEARANCE CLEAR; URINE BILIRUBIN NEGATIVE (<2.0 mg/dL); URINE COLOR DKYELLOW; URINE GLUCOSE (UA) NEGATIVE (NEGATIVE); URINE KETONE NEGATIVE (NEGATIVE); URINE LEUK ESTERASE NEGATIVE (NEGATIVE); URINE NITRITE NEGATIVE (NEGATIVE); URINE PROTEIN NEGATIVE (NEGATIVE); URINE UROBILINOGEN 4.0 E.U/dl mg/dL (0.2-1.0)
[2017-10-28] MEDS: THIAMINE HCL 100 MG TABLET (FP) PO SCH (23:11)
[2017-10-29] MEDS: chlordiazePOXIDE HCL 25 MG CAPSULE PO SCH ×4 (06:00→22:23)
[2017-10-29] MEDS: metFORMIN HCL 500 MG TABLET (FP) PO SCH (06:06)
--- NOTE | 2017-10-29 06:52 | CONSULT ---
[facility] Psychiatric Consult - Data Date of interview: 10/29/17 Admission source: Self-referred Identifying data: Mr Norton is a 66 years old male, father of a 34 years old daughter, unemployed on SSI, domiciled seeking detox treatment for alcohol. opioid and cocaine Substance Abuse History: Reports history of alcoholo, heroin and cocaine use. Refer to addiction counselor's summary for further information Medical History: Significant for hypertension, diabetes mellitus, positive PPD status and arthritis of left knee and back. Patient is on methadone 50 mg/day. Smokes 10 cigarettes daily. Psychiatric History: Patient reports being diagnosed with MDD 12 years ago. Denies history of previous psychiatric hospitaliation or suicidal attempt. However, reports he currently receives psychiatric outpatient services at a clinic located on [facility] in the [place] and he is prescribed Zoloft 50 mg po daily, Elavil 10 mg po HS nd Ambien 10 mg po HS. Pharmacy claims show script for Zoloft 50and Ambien 10 mg filled on 08/21/17 and Elavil 100 mg , Prozac 20 on 03/23/17 and Zyprexa 10 on 03/21/17. At present, reports feeling depressed and sleeping poorly Physical/Sexual Abuse/Trauma History: Patient denies history of emotional. physical or sexual abuse as well as DV relationship Additional Comment: Denies criminal history Psychiatric Findings - Problem List ([place] 1, 2,3) (1) MDD (major depressive disorder), recurrent, severe, with psychosis Current Visit: No Status: Chronic
--- NOTE | 2017-10-29 08:45 | PN ---
[facility] Progress Note Note: Patient approached at bedside. He speaks only swedish. Told news writer that he no longer takes psychiatric medication and does want to be seen
[2017-10-29 09:25] LABS: HEMATOCRIT 37.7 % (35.4-49); HEMOGLOBIN 12.1 GM/dL (11.7-16.9); MCH 26.8 pg (25.7-33.7); MCHC 32.2 g/dl (32.0-35.9); MEAN CELL VOLUME 83.3 fl (80-96); MEAN PLT VOLUME 9.1 fl (7.5-11.1); PLATELET COUNT 312 K/MM3 (134-434); RBC 4.53 M/mm3 (4.00-5.60); RDW 16.9 % (11.9-15.9); WHITE BLOOD COUNT 6.9 K/mm3 (4.0-10.0)
[2017-10-29 09:39] LABS: CHLORIDE 101 mmol/L (98-107); POTASSIUM 3.7 mmol/L (3.5-5.1); SODIUM 142 mmol/L (136-145)
[2017-10-29 09:44] LABS: ALBUMIN 3.5 g/dl (3.4-5.0); ALK PHOS 134 U/L (45-117); ANION GAP 7 (8-16); BILIRUBIN,TOTAL 0.3 mg/dL (0.2-1.0); BLOOD UREA NITROGEN 13 mg/dL (7-18); CALCIUM 8.6 mg/dL (8.5-10.1); CO2 34 mmol/L (21-32); CREATININE 0.9 mg/dL (0.7-1.3); GLUCOSE,RANDOM 83 mg/dL (74-106); SGOT/AST 19 U/L (15-37); SGPT/ALT 30 U/L (12-78); TOT PROT 7.6 g/dl (6.4-8.2)
--- NOTE | 2017-10-29 10:05 | EKG ---
Test Reason : Blood Pressure : / mmHG Vent. Rate : 082 BPM Atrial Rate : 082 BPM P-R Int : 104 ms QRS Dur : 108 ms QT Int : 416 ms P-R-T Axes : 050 -18 010 degrees QTc Int : 486 ms SINUS RHYTHM WITH SHORT RI MODERATE VOLTAGE CRITERIA FOR LVH, MAY BE NORMAL VARIANT PROLONGED QT ABNORMAL ECG WHEN COMPARED WITH ECG OF 30-SEP-2017 14:21, NO SIGNIFICANT CHANGE WAS FOUND Confirmed by MAY CRAMER, XIANG ([id number]) on 10/29/2017 10:05:26 AM Referred By: Wilver Loredo Confirmed By:XIANG OLVERA MD
[2017-10-29] MEDS: METHADONE HCL 10 MG TABLET PO SCH (10:44)
[2017-10-29] MEDS: PRENATAL VITAMINS W/ FOLIC ACID TABLET (FP) PO SCH (10:44)
[2017-10-29] MEDS: NICOTINE 14 MG/24 HOURS TOPICAL PATCH TD SCH (10:45)
[2017-10-29] MEDS: HYDROCHLOROTHIAZIDE 12.5 MG CAPSULE (FP) PO SCH (10:45)
--- NOTE | 2017-10-29 13:19 | PN ---
S CIWA - CIWA Score Nausea/Vomitin Muscle Tremors: 4-Moderate,w/Arms Extend Anxiety: 2 Agitation: 3 Paroxysmal Sweats: 3 Orientation: 0-Oriented Tacttile Disturbances: 1-Very Mild Itch/Numbness Auditory Disturbances: 0-None Visual Disturbances: 0-None Headache: 1-Very Mild CIWA-Ar Total Score: 17 S Progress Note (SOAP) Subjective: Chills, tremor, anxious, sweating Objective: 10/29/17 13:18 Last Vital Signs Temp Pulse Resp BP Pulse Ox 97.7 F 102 H 20 135/84 10/29/17 10:48 10/29/17 10:48 10/29/17 10:48 10/29/17 10:48 Laboratory Tests 10/28/17 10/28/17 10/28/17 10:56 16:21 16:45 WBC RBC Hgb Hct MCV MCH MCHC RDW Plt Count MPV Sodium Potassium Chloride Carbon Dioxide Anion Gap BUN Creatinine Creat Clearance w eGFR POC Glucometer 154 129 107 Random Glucose Calcium Total Bilirubin AST ALT Alkaline Phosphatase Total Protein Albumin Urine Color Urine Appearance Urine pH Ur Specific [place] Urine Protein Urine Glucose (UA) Urine Ketones Urine Blood Urine Nitrite Urine Bilirubin Urine Urobilinogen Ur Leukocyte Esterase RPR Titer 10/28/17 10/29/17 10/29/17 22:20 06:05 07:45 WBC 6.9 RBC 4.53 Hgb 12.1 Hct 37.7 MCV 83.3 MCH 26.8 MCHC 32.2 RDW 16.9 H Plt Count 312 MPV 9.1 Sodium Potassium Chloride Carbon Dioxide Anion Gap BUN Creatinine Creat Clearance w eGFR POC Glucometer 101 Random Glucose Calcium Total Bilirubin AST ALT Alkaline Phosphatase Total Protein Albumin Urine Color Dkyellow Urine Appearance Clear Urine pH 5.0 Ur Specific [place] 1.023 Urine Protein Negative Urine Glucose (UA) Negative Urine Ketones Negative Urine Blood Negative Urine Nitrite Negative Urine Bilirubin Negative Urine Urobilinogen 4.0 e.u/dl Ur Leukocyte Esterase Negative RPR Titer 10/29/17 10/29/17 07:45 07:45 WBC RBC Hgb Hct MCV MCH MCHC RDW Plt Count MPV Sodium 142 Potassium 3.7 Chloride 101 Carbon Dioxide 34 H Anion Gap 7 L BUN 13 D Creatinine 0.9 Creat Clearance w eGFR > 60 POC Glucometer Random Glucose 83 Calcium 8.6 Total Bilirubin 0.3 D AST 19 ALT 30 D Alkaline Phosphatase 134 H D Total Protein 7.6 Albumin 3.5 Urine Color Urine Appearance Urine pH Ur Specific [place] Urine Protein Urine Glucose (UA) Urine Ketones Urine Blood Urine Nitrite Urine Bilirubin Urine Urobilinogen Ur Leukocyte Esterase RPR Titer Nonreactive Labs reviewed Assessment: 10/29/17 13:19 Withdrawal symptoms Plan: Continue detox Encouraged PO hydration (water)
[2017-10-29] MEDS: THIAMINE HCL 100 MG TABLET (FP) PO SCH (22:23)
[2017-10-30] MEDS: chlordiazePOXIDE HCL 25 MG CAPSULE PO SCH ×2 (06:35→10:40)
[2017-10-30] MEDS: metFORMIN HCL 500 MG TABLET (FP) PO SCH (06:35)
[2017-10-30] MEDS: HYDROCHLOROTHIAZIDE 12.5 MG CAPSULE (FP) PO SCH (10:40)
[2017-10-30] MEDS: PRENATAL VITAMINS W/ FOLIC ACID TABLET (FP) PO SCH (10:40)
[2017-10-30] MEDS: METHADONE HCL 10 MG TABLET PO SCH (10:40)
[2017-10-30] MEDS: NICOTINE 14 MG/24 HOURS TOPICAL PATCH TD SCH (10:40)
--- NOTE | 2017-10-30 14:07 | PN ---
S CIWA - CIWA Score Nausea/Vomitin Muscle Tremors: 3 Anxiety: 3 Agitation: 3 Paroxysmal Sweats: 3 Orientation: 0-Oriented Tacttile Disturbances: 0-None Auditory Disturbances: 0-None Visual Disturbances: 0-None Headache: 0-None Present CIWA-Ar Total Score: 14 BHS Progress Note (SOAP) Subjective: Sleep disturbance Sweats Shakes Objective: 10/30/17 14:06 A & O x 3 not in distress Vital Signs Temperature 98.1 F 10/30/17 13:02 Pulse Rate 76 10/30/17 13:02 Respiratory Rate 18 10/30/17 13:02 Blood Pressure 116/76 10/30/17 13:02 O2 Sat by Pulse Oximetry (%) Assessment: 10/30/17 14:06 withdrawal sx Plan: continue detox
[2017-10-30] MEDS: chlordiazePOXIDE 5 MG CAPSULE PO SCH ×2 (18:33→22:22)
[2017-10-30] MEDS: THIAMINE HCL 100 MG TABLET (FP) PO SCH (22:22)
[2017-10-31] MEDS: chlordiazePOXIDE 5 MG CAPSULE PO SCH (05:50)
[2017-10-31] MEDS: metFORMIN HCL 500 MG TABLET (FP) PO SCH (06:13)
[2017-10-31 09:06] VITALS: BP 127/80; PULSE 75; TEMP 97.1
[2017-10-31] MEDS ORDERED: chlordiazePOXIDE HCL 10 MG CAPSULE PO SCH (17:00)
--- NOTE | 2017-10-31 22:21 | PN ---
S Progress Note (SOAP) Subjective: Patient denies current Detox symptoms and reports that he feels well overall. Objective: PATIENT A & O X 3, OBSERVED AMBULATING ON UNIT. NO ACUTE DISTRESS. 10/31/17 22:20 Vital Signs Temperature 97.1 F L 10/31/17 09:05 Pulse Rate 75 10/31/17 09:05 Respiratory Rate 18 10/31/17 09:05 Blood Pressure 127/80 10/31/17 09:05 O2 Sat by Pulse Oximetry (%) Laboratory Tests 10/28/17 10/28/17 10/28/17 10:56 16:21 16:45 WBC RBC Hgb Hct MCV MCH MCHC RDW Plt Count MPV Sodium Potassium Chloride Carbon Dioxide Anion Gap BUN Creatinine Creat Clearance w eGFR POC Glucometer 154 129 107 Random Glucose Calcium Total Bilirubin AST ALT Alkaline Phosphatase Total Protein Albumin Urine Color Urine Appearance Urine pH Ur Specific [place] Urine Protein Urine Glucose (UA) Urine Ketones Urine Blood Urine Nitrite Urine Bilirubin Urine Urobilinogen Ur Leukocyte Esterase RPR Titer 10/28/17 10/29/17 10/29/17 22:20 06:05 07:45 WBC 6.9 RBC 4.53 Hgb 12.1 Hct 37.7 MCV 83.3 MCH 26.8 MCHC 32.2 RDW 16.9 H Plt Count 312 MPV 9.1 Sodium Potassium Chloride Carbon Dioxide Anion Gap BUN Creatinine Creat Clearance w eGFR POC Glucometer 101 Random Glucose Calcium Total Bilirubin AST ALT Alkaline Phosphatase Total Protein Albumin Urine Color Dkyellow Urine Appearance Clear Urine pH 5.0 Ur Specific [place] 1.023 Urine Protein Negative Urine Glucose (UA) Negative Urine Ketones Negative Urine Blood Negative Urine Nitrite Negative Urine Bilirubin Negative Urine Urobilinogen 4.0 e.u/dl Ur Leukocyte Esterase Negative RPR Titer 10/29/17 10/29/17 10/29/17 07:45 07:45 16:18 WBC RBC Hgb Hct MCV MCH MCHC RDW Plt Count MPV Sodium 142 Potassium 3.7 Chloride 101 Carbon Dioxide 34 H Anion Gap 7 L BUN 13 D Creatinine 0.9 Creat Clearance w eGFR > 60 POC Glucometer 87 Random Glucose 83 Calcium 8.6 Total Bilirubin 0.3 D AST 19 ALT 30 D Alkaline Phosphatase 134 H D Total Protein 7.6 Albumin 3.5 Urine Color Urine Appearance Urine pH Ur Specific [place] Urine Protein Urine Glucose (UA) Urine Ketones Urine Blood Urine Nitrite Urine Bilirubin Urine Urobilinogen Ur Leukocyte Esterase RPR Titer Nonreactive 10/30/17 10/30/17 10/31/17 06:26 16:25 05:49 WBC RBC Hgb Hct MCV MCH MCHC RDW Plt Count MPV Sodium Potassium Chloride Carbon Dioxide Anion Gap BUN Creatinine Creat Clearance w eGFR POC Glucometer 105 107 148 Random Glucose Calcium Total Bilirubin AST ALT Alkaline Phosphatase Total Protein Albumin Urine Color Urine Appearance Urine pH Ur Specific [place] Urine Protein Urine Glucose (UA) Urine Ketones Urine Blood Urine Nitrite Urine Bilirubin Urine Urobilinogen Ur Leukocyte Esterase RPR Titer LABS NOTED. Assessment: 10/31/17 22:20 COMPLETION OF DETOX REGIMEN. Plan: PATIENT SCHEDULED FOR DISCHARGE FORM DETOX TODAY.
--- NOTE | 2017-10-31 22:25 | DS ---
[facility] Detox Discharge Summary Admission Date: 10/28/17 Discharge Date: 10/31/17 - History Present History: Alcohol Dependence, Cocaine Dependence, Opioid Dependence, MMTP Additional Comments: PATIENT REPORTS THAT HE FEELS WELL OVERALL AT TIME OF DISCHARGE FROM DETOX. PATIENT GOING HOME, ADVISED TO CONSIDER LOCAL 12-STEP / NA / AA OUTPATIENT SUPPORT GROUPS FOR AFTERCARE. PATIENT WAS DISCHARGED FROM DETOX UNIT IN STABLE MEDICAL CONDITION. Pertinent Past History: HTN, Type II DM, MMTP, Depression, Bipolar Disorder, Use of Cane as Ambulatory Aid, Arthritis of Bilateral Knees. - Physical Exam Results Vital Signs: Vital Signs Temperature 97.1 F L 10/31/17 09:05 Pulse Rate 75 10/31/17 09:05 Respiratory Rate 18 10/31/17 09:05 Blood Pressure 127/80 10/31/17 09:05 O2 Sat by Pulse Oximetry (%) Pertinent Admission Physical Exam Findings: WITHDRAWAL SYMPTOMS. Laboratory Tests 10/28/17 10/28/17 10/28/17 10:56 16:21 16:45 WBC RBC Hgb Hct MCV MCH MCHC RDW Plt Count MPV Sodium Potassium Chloride Carbon Dioxide Anion Gap BUN Creatinine Creat Clearance w eGFR POC Glucometer 154 129 107 Random Glucose Calcium Total Bilirubin AST ALT Alkaline Phosphatase Total Protein Albumin Urine Color Urine Appearance Urine pH Ur Specific [place] Urine Protein Urine Glucose (UA) Urine Ketones Urine Blood Urine Nitrite Urine Bilirubin Urine Urobilinogen Ur Leukocyte Esterase RPR Titer 10/28/17 10/29/17 10/29/17 22:20 06:05 07:45 WBC 6.9 RBC 4.53 Hgb 12.1 Hct 37.7 MCV 83.3 MCH 26.8 MCHC 32.2 RDW 16.9 H Plt Count 312 MPV 9.1 Sodium Potassium Chloride Carbon Dioxide Anion Gap BUN Creatinine Creat Clearance w eGFR POC Glucometer 101 Random Glucose Calcium Total Bilirubin AST ALT Alkaline Phosphatase Total Protein Albumin Urine Color Dkyellow Urine Appearance Clear Urine pH 5.0 Ur Specific [place] 1.023 Urine Protein Negative Urine Glucose (UA) Negative Urine Ketones Negative Urine Blood Negative Urine Nitrite Negative Urine Bilirubin Negative Urine Urobilinogen 4.0 e.u/dl Ur Leukocyte Esterase Negative RPR Titer 10/29/17 10/29/17 10/29/17 07:45 07:45 16:18 WBC RBC Hgb Hct MCV MCH MCHC RDW Plt Count MPV Sodium 142 Potassium 3.7 Chloride 101 Carbon Dioxide 34 H Anion Gap 7 L BUN 13 D Creatinine 0.9 Creat Clearance w eGFR > 60 POC Glucometer 87 Random Glucose 83 Calcium 8.6 Total Bilirubin 0.3 D AST 19 ALT 30 D Alkaline Phosphatase 134 H D Total Protein 7.6 Albumin 3.5 Urine Color Urine Appearance Urine pH Ur Specific [place] Urine Protein Urine Glucose (UA) Urine Ketones Urine Blood Urine Nitrite Urine Bilirubin Urine Urobilinogen Ur Leukocyte Esterase RPR Titer Nonreactive 10/30/17 10/30/17 10/31/17 06:26 16:25 05:49 WBC RBC Hgb Hct MCV MCH MCHC RDW Plt Count MPV Sodium Potassium Chloride Carbon Dioxide Anion Gap BUN Creatinine Creat Clearance w eGFR POC Glucometer 105 107 148 Random Glucose Calcium Total Bilirubin AST ALT Alkaline Phosphatase Total Protein Albumin Urine Color Urine Appearance Urine pH Ur Specific [place] Urine Protein Urine Glucose (UA) Urine Ketones Urine Blood Urine Nitrite Urine Bilirubin Urine Urobilinogen Ur Leukocyte Esterase RPR Titer LABS NOTED. - Treatment Hospital Course: Detox Protocol Followed, Detoxed Safely, Responded well, Discharged Condition Good Patient has Accepted a Rehab Referral to: PT. ADVISED TO CONSIDER LOCAL 12-STEP/ NA/AA OUTPATIENT SUPPORT GROUPS. - Medication Discharge Medications: Ambulatory Orders Gabapentin [Neurontin -] 300 mg PO Q8H 10/28/17 Hydrochlorothiazide [Hctz -] 12.5 mg PO DAILY 10/28/17 Sertraline HCl [Zoloft -] 50 mg PO DAILY 10/28/17 metFORMIN HCL [Glucophage -] 500 mg PO ACBK 10/28/17 - Diagnosis (1) Alcohol dependence with uncomplicated withdrawal Status: Acute (2) Ambulates with cane Status: Chronic (3) Arthritis Status: Chronic (4) Cocaine dependence Status: Chronic Qualifiers: Substance use status: uncomplicated Qualified Code(s): F14.20 - Cocaine dependence, uncomplicated (5) Diabetes mellitus Status: Chronic Qualifiers: Diabetes mellitus type: type 2 Diabetes mellitus residential insulin use: without marine oil terminal superintendent use Diabetes mellitus complication status: without complication Qualified Code(s): E11.9 - Type 2 diabetes mellitus without complications (6) HTN (hypertension) Status: Chronic Qualifiers: Hypertension type: essential hypertension Qualified Code(s): I10 - Essential (primary) hypertension (7) Methadone maintenance therapy patient Status: Chronic (8) Nicotine dependence Status: Chronic Qualifiers: Nicotine product type: cigarettes Substance use status: in withdrawal Qualified Code(s): F17.213 - Nicotine dependence, cigarettes, with withdrawal (9) Osteoarthritis of both knees Status: Chronic Qualifiers: Osteoarthritis type: primary Qualified Code(s): M17.0 - Bilateral primary osteoarthritis of knee - AMA Did Patient Leave Against Medical Advice: No
== END 2017-10-31 09:15 | disposition home or self-care (01) | DRG 897 ==
LOC: YASAS 08:50 → Y3N 11:45
PROVIDERS: ADMIT Internal Medicine; ATTEND Internal Medicine
PROC: HZ2ZZZZ Detoxification Services for Substance Abuse Treatment (ICD-10-PCS; principal; 2017-10-28)
DX: F11.20 Opioid dependence, uncomplicated (principal); F10.230 Alcohol dependence with withdrawal, uncomplicated; F14.20 Cocaine dependence, uncomplicated; F17.210 Nicotine dependence, cigarettes, uncomplicated; F31.9 Bipolar disorder, unspecified; I10 Essential (primary) hypertension; E11.9 Type 2 diabetes mellitus without complications; Z79.84 Long term (current) use of oral hypoglycemic drugs; M17.0 Bilateral primary osteoarthritis of knee; R26.89 Other abnormalities of gait and mobility; Z99.89 Dependence on other enabling machines and devices
CPT/HCPCS: 36415; 80053; 81003; 82962; 85027; 86593; 93005; 93010

== ENCOUNTER 2021-01-26 08:33 | Inpatient (IN) | payer OTHER ==
[2021-01-26 09:47] VITALS: BMI 34.2
[2021-01-26] MEDS ORDERED: IBUPROFEN 400 MG TABLET (FP) PO PRN (10:23)
[2021-01-26] MEDS ORDERED: METHOCARBAMOL 500 MG TABLET PO PRN (10:23)
[2021-01-26] MEDS ORDERED: diazePAM 5 MG TABLET PO PRN ×2 (10:23→10:45)
[2021-01-26] MEDS ORDERED: MAGNESIUM HYDROX 2400MG/30ML ORAL SUSPENSION 30 ML CUP PO PRN (10:23)
[2021-01-26] MEDS ORDERED: BISMUTH SUBSALICYLATE 262 MG/15 ML BTL PO PRN (10:23)
[2021-01-26] MEDS ORDERED: ONDANSETRON *ODT* 4 MG TABLET SL PRN (10:23)
[2021-01-26] MEDS ORDERED: ACETAMINOPHEN 325 MG TABLET (FP) PO PRN ×2 (10:23)
[2021-01-26] MEDS ORDERED: MENTHOL/PHENOL 1 EACH UD MM PRN (10:23)
[2021-01-26] MEDS ORDERED: MAG HYDROX/AL HYDROX/SIMETH 30 ML UNIT-DOSE CUP PO PRN (10:23)
[2021-01-26] MEDS ORDERED: NICOTINE 10 MG CARTRIDGE (INHALER) IH PRN (10:23)
[2021-01-26] MEDS ORDERED: MAGNESIUM CITRATE 300 ML BOTTLE PO PRN (10:23)
[2021-01-26] MEDS: BACITRACIN 0.9 GM PACKET TP SCH ×2 (12:02→22:00)
[2021-01-26] MEDS: methaDONE HCL 10 MG TABLET PO SCH (12:02)
[2021-01-26] MEDS: CEPHALEXIN MONOHYDRATE 500 MG CAPSULE (UD) PO SCH ×2 (13:14→21:59)
[2021-01-26] MEDS ORDERED: hydrOXYzine PAMOATE 25 MG CAPSULE (FP) PO SCH (14:00)
[2021-01-26 15:45] LABS: HEMATOCRIT 34.7 % (35.4-49); HEMOGLOBIN 11.7 GM/dL (11.7-16.9); MCH 28.8 pg (25.7-33.7); MCHC 33.7 g/dl (32.0-35.9); MEAN CELL VOLUME 85.4 fl (80-96); MEAN PLT VOLUME 9.6 fl (7.5-11.1); PLATELET COUNT 262 10^3/uL (134-434); RBC 4.07 M/mm3 (4.00-5.60); RDW 15.1 % (11.9-15.9); WHITE BLOOD COUNT 9.6 K/mm3 (4.0-10.0)
[2021-01-26 15:48] LABS: CALCIUM 8.9 mg/dL (8.5-10.1)
[2021-01-26 15:49] LABS: BLOOD UREA NITROGEN 16.5 mg/dL (7-18)
[2021-01-26 15:53] LABS: CREATININE 1.2 mg/dL (0.55-1.3)
[2021-01-26 15:54] LABS: BILIRUBIN,TOTAL 0.7 mg/dL (0.2-1); TOT PROT 7.9 g/dl (6.4-8.2)
[2021-01-26] MEDS: diazePAM 5 MG TABLET PO SCH ×2 (17:02→22:01)
[2021-01-26] MEDS: MELATONIN 5 MG TABLETS PO SCH (22:00)
[2021-01-26] MEDS: THIAMINE HCL 100 MG TABLET (FP) PO SCH (22:00)
[2021-01-27] MEDS: methaDONE HCL 10 MG TABLET PO SCH (06:25)
[2021-01-27] MEDS: CEPHALEXIN MONOHYDRATE 500 MG CAPSULE (UD) PO SCH ×3 (06:25→22:37)
[2021-01-27] MEDS: diazePAM 5 MG TABLET PO SCH ×4 (06:25→22:38)
[2021-01-27] MEDS: BACITRACIN 0.9 GM PACKET TP SCH ×2 (10:39→22:37)
[2021-01-27] MEDS: NICOTINE 21 MG/24 HOURS TOPICAL PATCH TD SCH (10:39)
[2021-01-27] MEDS: PRENATAL VITAMINS W/ FOLIC ACID TABLET (FP) PO SCH (10:39)
[2021-01-27] MEDS ORDERED: SUVOREXANT 10 MG TABLET PO PRN (22:00)
[2021-01-27] MEDS ORDERED: AMITRIPTYLINE HCL 100 MG TABLET PO SCH (22:00)
[2021-01-27] MEDS: THIAMINE HCL 100 MG TABLET (FP) PO SCH (22:37)
[2021-01-27] MEDS: MELATONIN 5 MG TABLETS PO SCH (22:37)
[2021-01-28] MEDS: CEPHALEXIN MONOHYDRATE 500 MG CAPSULE (UD) PO SCH ×2 (06:22→15:01)
[2021-01-28] MEDS: methaDONE HCL 10 MG TABLET PO SCH (06:22)
[2021-01-28] MEDS: diazePAM 5 MG TABLET PO SCH ×2 (06:22→15:01)
[2021-01-28] MEDS: NICOTINE 21 MG/24 HOURS TOPICAL PATCH TD SCH (10:46)
[2021-01-28] MEDS: BACITRACIN 0.9 GM PACKET TP SCH (10:46)
[2021-01-28] MEDS: PRENATAL VITAMINS W/ FOLIC ACID TABLET (FP) PO SCH (10:46)
[2021-01-28 17:14] VITALS: BP 137/82; PULSE 80; TEMP 97.8
[2021-01-29] MEDS ORDERED: diazePAM 5 MG TABLET PO SCH (06:00)
[2021-01-30] MEDS ORDERED: diazePAM 5 MG TABLET PO ONE (06:00)
== END 2021-01-28 20:20 | disposition left against medical advice (07) | DRG 894 ==
LOC: YASAS 08:33 → Y6N 11:15
PROVIDERS: ADMIT Allergy & Immunology; ATTEND Allergy & Immunology
PROC: HZ2ZZZZ Detoxification Services for Substance Abuse Treatment (ICD-10-PCS; principal; 2021-01-26)
DX: F10.230 Alcohol dependence with withdrawal, uncomplicated (principal); F11.20 Opioid dependence, uncomplicated; F14.20 Cocaine dependence, uncomplicated; F19.282 Other psychoactive substance dependence with psychoactive substance-induced sleep disorder; F33.1 Major depressive disorder, recurrent, moderate; L03.114 Cellulitis of left upper limb; F17.210 Nicotine dependence, cigarettes, uncomplicated; I10 Essential (primary) hypertension; E11.9 Type 2 diabetes mellitus without complications; Z79.84 Long term (current) use of oral hypoglycemic drugs; M17.10 Unilateral primary osteoarthritis, unspecified knee; R76.11 Nonspecific reaction to tuberculin skin test without active tuberculosis; Z99.89 Dependence on other enabling machines and devices
CPT/HCPCS: 36415; 71045-TC-FY; 80053; 82962; 85027; 86780; 93005; 93010; C9803; U0003; U0005